=== PATIENT | female | born 1950 | race Caucasian/White ===

== ENCOUNTER 2019-12-21 21:01 | Emergency (ER) | payer MEDICARE, OTHER, SELFPAY ==
[2019-12-21] VITALS (9 sets, daily range): BP systolic 123–171; BP diastolic 60–87; PULSE 72–92; RESP 18–26; TEMP 36.3–36.7; O2SAT 91–98
--- NOTE | ~2019-12-21 | XR_ITS ---
XR shoulder LT min 2V DATE: 12/21/2019 22:59 INDICATION: Fall. Generalized left shoulder pain TECHNIQUE: 4 views COMPARISON: 12/22/2019 left shoulder FINDINGS: There is reduction of the anterior dislocation of the left shoulder. No apparent fracture is noted. Normal alignment at the acromioclavicular and glenohumeral joints. Diffuse osteopenia. IMPRESSION: Reduction of anterior dislocation of left shoulder Reviewed, dictated and finalized at location A.
--- NOTE | ~2019-12-21 | XR_ITS ---
EXAMINATION: XR shoulder LT min 2V DATE: 12/21/2019 21:35 INDICATION: Left shoulder pain. TECHNIQUE: 4 views of left shoulder were obtained. COMPARISON: None. FINDINGS: There is anterior dislocation of humeral head with respect to glenoid. There is an impactio n fracture deformity of posterolateral aspect of humeral head (Hill-Sachs fracture deformity). Acromi oclavicular joint is normal. Sternotomy wires are noted. IMPRESSION: 1. Anterior left shoulder dislocation. 2. Hill-Sachs fracture deformity. Reviewed, dictated and finalized at location A.
--- NOTE | ~2019-12-21 | XR_ITS ---
XR chest 1V portable DATE: 12/21/2019 22:59 INDICATION: Possible aspiration. Hypertension. TECHNIQUE: Portable AP chest on 12/21/2019 at 2246 hours COMPARISON: None FINDINGS: This is a limited apical lordotic portable single view of the chest. Status post sternotomy. Cardiomegaly. There is pulmonary vascular redistribution which may indicate mild pulmonary venous hypertension. The re are mild bibasilar infiltrates and/atelectasis. Diffuse osteopenia. There is thoracolumbar scoliosis. IMPRESSION: Cardiomegaly and mild pulmonary vascular congestion Bibasilar infiltrate and/or atelectasis Reviewed, dictated and finalized at location A.
--- NOTE | 2019-12-21 21:17 | ED.UPPEXIN ---
HPI - Extremity Injury (Upper) General Chief Complaint: Extremity Injury, Upper Stated Complaint: hand injury Source: patient and EMS Mode of arrival: ambulatory History of Present Illness HPI narrative: Patient is 69 years old white female came from home by ambulance complaining of left shoulder pain after tripping and falling. Patient denies other injuries. Patient denies any fever, chills, nausea, no vomiting, coughing, shortness of breath, chest pain or back pain. Related Data Home Medications Medication Instructions Recorded Confirmed estradiol [Estrace] 1 g VAGINAL 3XW 12/21/19 ferrous sulfate 325 mg PO DAILY 12/21/19 fluticasone furoate [Flonase INTRANASAL 12/21/19 Sensimist] insulin glargine [Lantus U-100 SUBCUT 12/21/19 Insulin] lisinopril 10 mg PO DAILY 12/21/19 magnesium oxide 400 mg PO BID 12/21/19 metformin 500 mg PO DAILY 12/21/19 idxhxlsv-raj-wrrw-FA-lutein 1 tablet PO DAILY 12/21/19 [Centrum Silver Women] mycophenolate sodium [Myfortic] 720 mg PO BID 12/21/19 duyzp-6y-uvd-epa-fish oil [[place]-3 2 cap PO DAILY 12/21/19 Fish Oil] omeprazole magnesium [Prilosec] 20 mg PO DAILY 12/21/19 prednisone 5 mg PO DAILY 12/21/19 rosuvastatin [Crestor] 5 mg PO DAILY 12/21/19 tacrolimus [Prograf] 1.5 mg PO Q12H 12/21/19 vit C,I-Qh-whrbk-lutein-zeaxan 1 tablet PO DAILY 12/21/19 [PreserVision AREDS-2] Allergies Allergy/AdvReac Type Severity Reaction Status Date / Time Neponset And Derivatives Allergy Rash Verified 12/21/19 21:23 gatifloxacin [From Tequin] Allergy Other Verified 12/21/19 21:23 iohexol Allergy Hives Verified 12/21/19 21:23 [From contrast - CT, X-RAY] Penicillins Allergy Rash Verified 12/21/19 21:23 Sulfa (Sulfonamide Allergy Fever Verified 12/21/19 21:23 Antibiotics) Review of Systems Review of Systems: Narrative: CONSTITUTIONAL: Denies fever, chills, or sweats. EYES: Denies visual changes, redness, or discharge. ENT: Denies rhinorrhea, congestion, sore throat, or otalgia. CARDIOVASCULAR: Denies chest pain, palpitations, or edema. RESPIRATORY: Denies cough or dyspnea. GASTROINTESTINAL: Denies abdominal pain, nausea, vomiting, or diarrhea. GENITOURINARY: Denies dysuria or hematuria. SKIN: Denies rash or itching. MUSCULOSKELETAL: Denies back pain, joint pain, or myalgia. NEUROLOGIC: Denies headache, numbness, or weakness. PSYCHIATRIC: Denies anxiety or depression. [facility], [facility] Past Medical History Medical History (Updated 12/21/19 @ 22:54 by Eloisa Zepeda MD) Diabetes mellitus, new onset Hypertension Kidney transplant as cause of abnormal reaction or later complication Social History Social History (Updated 12/21/19 @ 21:22 by Eloisa Zepeda MD) Social History: Patient denied any smoking or drinking or marijuana use. Second hand tobacco smoke exposure: No Additional smoking assessment comments: Denies any smoking Alcohol use details: Denies alcohol use Exam Narrative: Exam Narrative: General appearance: Well-developed, well-nourished Skin: Normal color Head: Normocephalic, nontraumatic Eyes: Clear conjunctiva ENT: Oropharynx normal, ears normal, nose normal Neck: Supple, nontender Chest and respiratory: Airway patent, no respiratory distress, no accessory muscle use Heart: Regular rate/rhythm Abdomen: Soft, nontender, no organomegaly, quiet bowel sounds Vascular: Normal peripheral pulses, normal capillary refill. Musculoskeletal: Left shoulder shows deformity, diffuse tenderness and severe limited range of motion Neurologic: Alert and oriented ?3, MOLD DUMPER is normal as tested, no gross motor deficit Course Course Emergency Course: Stable, improving Vital Signs Vi
--- NOTE | 2019-12-21 21:20 | PC.NURSE ---
Patient being taken to xray.
[2019-12-21] MEDS: HYDROmorphone HCL INJ (*CRX) 1 MG/ML SYR IM (21:32)
[2019-12-21] MEDS: Please add drug allergy info to patient profile. 1 EACH XX (21:32)
[2019-12-21] MEDS: ONDANSETRON HCL ODT 4 MG TABLET PO (21:32)
[2019-12-21] MEDS: SODIUM CHLORIDE 0.9% IV 1,000 ML 500 ML (22:25)
--- NOTE | 2019-12-21 22:25 | PC.NURSE ---
ERP in room to prepare for reduction.
[2019-12-21] MEDS: ETOMIDATE 20 MG/10 ML AMPUL 40 MG IV PUSH (22:26)
--- NOTE | 2019-12-21 22:28 | PC.NURSE ---
2226 10 mg etomdate given IVP. ERP performed reduction.
--- NOTE | 2019-12-21 22:36 | PC.NURSE ---
Patient vomited after sedation, chest xray ordered.
[2019-12-22 00:40] VITALS: BP 119/69; PULSE 75; RESP 20; O2SAT 93
== END 2019-12-22 00:43 | disposition home or self-care (01) ==
PROVIDERS: Emergency Provider Emergency Medicine
DX: S43.015A Anterior dislocation of left humerus, initial encounter (principal); Z79.4 Long term (current) use of insulin; Z79.84 Long term (current) use of oral hypoglycemic drugs; E11.9 Type 2 diabetes mellitus without complications; I10 Essential (primary) hypertension; Z94.0 Kidney transplant status; W01.0XXA Fall on same level from slipping, tripping and stumbling without subsequent striking against object, initial encounter
CPT/HCPCS: 23650; 71045; 73030; 96372; 99285; A9270; J1170; J7030

== ENCOUNTER 2021-07-14 08:06 | Outpatient (CLI) | payer MEDICARE, SELFPAY ==
[2021-07-14 09:04] LABS: Hematocrit 38.9 % (37.0-47.0); Hemoglobin 12.3 g/dL (12.0-15.0); Mean Corpuscular HGB Conc 31.6 g/dl (32-36); Mean Corpuscular Hemoglobin 26.8 pg (26-34); Mean Corpuscular Volume 84.7 fl (80-100); Mean Platelet Volume 10.7 fl (7.4-10.4); Platelet Count Result 177 k/mm3 (150-375); Red Blood Count 4.59 M/mm3 (4.2-5.4); Red Cell Distribution Width 15.6 % (11.5-14.5)
[2021-07-14 09:15] LABS: Albumin Level 3.7 g/dL (3.5-5.1); Anion Gap 7 mmol/L (8-16); Blood Urea Nitrogen 17 mg/dL (7-17); Calcium 8.4 mg/dL (8.4-10.2); Carbon Dioxide 27 mmol/L (22-30); Chloride 105 mmol/L (98-107); Estimated Glomerular Filt Rate > 60; Glucose 104 mg/dL (65-110); Magnesium 1.7 mg/dL (1.6-2.3); Sodium 139 mmol/L (137-145)
[2021-07-14 10:15] LABS: Hemoglobin A1C 6.5 % (<5.7)
[2021-07-14 10:25] LABS: Creatinine Urine 154.7 mg/dL; Total Protein Urine Random 13 mg/dL; Ur Ttl Prot Creatinine Ratio 0.08 mg/mg (0-0.20)
[2021-07-17 17:16] LABS: Tacrolimus Prograf 4.3 mcg/L
== END 2021-07-14 08:07 | disposition home or self-care (01) ==
DX: D64.9 Anemia, unspecified (principal); N25.81 Secondary hyperparathyroidism of renal origin; E11.9 Type 2 diabetes mellitus without complications; E78.41 Elevated Lipoprotein(a); E83.49 Other disorders of magnesium metabolism; Z79.899 Other long term (current) drug therapy; Z94.0 Kidney transplant status
CPT/HCPCS: 36415; 80069; 80197; 82570; 83036; 83735; 84156; 85027

== ENCOUNTER 2021-10-13 08:03 | Outpatient (RCR) | payer MEDICARE, SELFPAY ==
[2021-08-11 08:36] LABS: Basophils Percent Auto 0.4 % (0.2-1.2); Eosinophils Absolute Auto 0.1 K/mm3 (0-0.3); Eosinophils Percent Auto 1.8 % (0-4.4); Hemoglobin 12.2 g/dL (12.0-15.0); Immature Granulocyte Absolute 0.03 K/mm3 (0.00-0.031); Immature Granulocyte Percent A 0.5 % (0-0.5); Lymphocytes Absolute Auto 1.79 K/mm3 (0.9-3.2); Mean Corpuscular HGB Conc 29.8 g/dl (32-36); Mean Corpuscular Hemoglobin 26.2 pg (26-34); Mean Platelet Volume 9.5 fl (7.4-10.4); Monocytes Absolute Auto 0.6 K/mm3 (0.1-0.6); Monocytes Percent Auto 9.8 % (2.6-8.5); Neutrophils Absolute Auto 3.1 K/mm3 (1.3-6.7); Neutrophils Percent Auto 55.5 % (45.5-73.1); Platelet Count Result 165 k/mm3 (150-375); Red Blood Count 4.66 M/mm3 (4.2-5.4); Red Cell Distribution Width 16.1 % (11.5-14.5); White Blood Count 5.6 K/mm3 (4.5-10.0)
[2021-08-11 08:49] LABS: Anion Gap 8 mmol/L (8-16); Blood Urea Nitrogen 15 mg/dL (7-17); Calcium 7.9 mg/dL (8.4-10.2); Carbon Dioxide 23 mmol/L (22-30); Chloride 109 mmol/L (98-107); Estimated Glomerular Filt Rate > 60; Glucose 128 mg/dL (65-110); Potassium 3.7 mmol/L (3.4-5.0); Sodium 140 mmol/L (137-145)
[2021-08-11 09:01] LABS: Platelet Estimate Adequate (Adequate)
[2021-08-11 09:02] LABS: Ovalocytes 1+ (NORMAL)
[2021-09-08 08:46] LABS: Hematocrit 41.7 % (37.0-47.0); Hemoglobin 12.4 g/dL (12.0-15.0); Mean Corpuscular HGB Conc 29.7 g/dl (32-36); Mean Corpuscular Hemoglobin 26.3 pg (26-34); Mean Corpuscular Volume 88.3 fl (80-100); Mean Platelet Volume 10.4 fl (7.4-10.4); Platelet Count Result 174 k/mm3 (150-375); Red Blood Count 4.72 M/mm3 (4.2-5.4); Red Cell Distribution Width 16.6 % (11.5-14.5); White Blood Count 5.9 K/mm3 (4.5-10.0)
[2021-09-08 09:03] LABS: Anion Gap 6 mmol/L (8-16); Blood Urea Nitrogen 17 mg/dL (7-17); Calcium 8.4 mg/dL (8.4-10.2); Carbon Dioxide 25 mmol/L (22-30); Chloride 108 mmol/L (98-107); Cholesterol 145 mg/dL (0-200); Creatine Kinase 35 U/L (30-135); Estimated Glomerular Filt Rate > 60; Glucose 95 mg/dL (65-110); HDL Direct 46 mg/dL; Magnesium 1.7 mg/dL (1.6-2.3); Potassium 4.2 mmol/L (3.4-5.0); Sodium 139 mmol/L (137-145); Triglycerides 143 mg/dL (<150)
[2021-09-08 09:10] LABS: LDL Cholesterol Direct 62 mg/dL
[2021-09-08 09:23] LABS: Iron 54 ug/dL (37-170)
[2021-09-08 09:34] LABS: Percent Iron Saturation 18 % (20-50)
[2021-10-13 08:44] LABS: Hematocrit 38.5 % (37.0-47.0); Hemoglobin 12.1 g/dL (12.0-15.0); Mean Corpuscular HGB Conc 31.4 g/dl (32-36); Mean Corpuscular Hemoglobin 26.4 pg (26-34); Mean Corpuscular Volume 84.1 fl (80-100); Mean Platelet Volume 10.1 fl (7.4-10.4); Platelet Count Result 183 k/mm3 (150-375); Red Blood Count 4.58 M/mm3 (4.2-5.4); Red Cell Distribution Width 16.3 % (11.5-14.5); White Blood Count 6.5 K/mm3 (4.5-10.0)
[2021-10-13 08:56] LABS: Albumin Level 3.7 g/dL (3.5-5.1); Anion Gap 6 mmol/L (8-16); Blood Urea Nitrogen 21 mg/dL (7-17); Calcium 8.5 mg/dL (8.4-10.2); Carbon Dioxide 25 mmol/L (22-30); Chloride 108 mmol/L (98-107); Cholesterol 165 mg/dL (0-200); Creatine Kinase 44 U/L (30-135); Estimated Glomerular Filt Rate > 60; Glucose 106 mg/dL (65-110); HDL Direct 48 mg/dL; Magnesium 1.9 mg/dL (1.6-2.3); Phosphorus 4.3 mg/dL (2.5-4.5); Potassium 4.1 mmol/L (3.4-5.0); Sodium 139 mmol/L (137-145); Triglycerides 116 mg/dL (<150)
[2021-10-13 09:07] LABS: LDL Cholesterol Direct 71 mg/dL
[2021-10-13 10:26] LABS: Parathyroid Intact 59.1 pg/mL (7.5-53.5)
[2021-10-13 13:22] LABS: Iron 64 ug/dL (37-170)
[2021-10-13 13:33] LABS: Percent Iron Saturation 22 % (20-50)
== END 2021-11-09 23:59 | disposition home or self-care (01) ==
LOC: ANHLAB 08:03
DX: Z94.0 Kidney transplant status (principal); E11.9 Type 2 diabetes mellitus without complications; N25.81 Secondary hyperparathyroidism of renal origin; D64.9 Anemia, unspecified
CPT/HCPCS: 36415; 80048; 80061; 80069; 80197; 82550; 82728; 83540; 83550; 83735; 83970; 85025; 85027

== ENCOUNTER 2021-11-10 08:06 | Outpatient (CLI) | payer MEDICARE, SELFPAY ==
[2021-11-10 09:46] LABS: Hemoglobin 11.7 g/dL (12.0-15.0); Mean Corpuscular Hemoglobin 26.1 pg (26-34); Mean Corpuscular Volume 87.1 fl (80-100); Mean Platelet Volume 10.4 fl (7.4-10.4); Platelet Count Result 199 k/mm3 (150-375); Red Blood Count 4.48 M/mm3 (4.2-5.4); Red Cell Distribution Width 15.9 % (11.5-14.5); White Blood Count 6.3 K/mm3 (4.5-10.0)
[2021-11-10 10:03] LABS: Alanine Aminotransferase 12 U/L (6-35); Albumin Level 3.7 g/dL (3.5-5.1); Alkaline Phosphatase 131 U/L (38-126); Anion Gap 9 mmol/L (8-16); Aspartate Amino Transferase 22 U/L (14-36); Bilirubin,Total 0.4 mg/dL (0.2-1.3); Blood Urea Nitrogen 28 mg/dL (7-17); Calcium 9.4 mg/dL (8.4-10.2); Carbon Dioxide 24 mmol/L (22-30); Chloride 106 mmol/L (98-107); Cholesterol 140 mg/dL (0-200); Estimated Glomerular Filt Rate > 60; Glucose 114 mg/dL (65-110); HDL Direct 44 mg/dL; Potassium 4.2 mmol/L (3.4-5.0); Sodium 139 mmol/L (137-145); Triglycerides 158 mg/dL (<150)
[2021-11-10 10:14] LABS: LDL Cholesterol Direct 60 mg/dL
[2021-11-10 10:34] LABS: Creatinine Urine 184.9 mg/dL
[2021-11-10 10:37] LABS: MALB Creatinine Ratio 18.7 mg/g (0-30); Microalbumin Urine Random 34.5 mg/L (0-16.7)
== END 2021-11-10 08:07 | disposition home or self-care (01) ==
DX: E11.9 Type 2 diabetes mellitus without complications (principal); Z94.0 Kidney transplant status; I10 Essential (primary) hypertension; E55.9 Vitamin D deficiency, unspecified
CPT/HCPCS: 36415; 80053; 80061; 80197; 82043; 82306; 83036; 84443; 85027

== ENCOUNTER 2022-01-13 08:24 | Outpatient (RCR) | payer MEDICARE, SELFPAY ==
[2021-11-12 23:30] LABS: Tacrolimus Prograf 6.2 mcg/L
[2021-12-15 08:35] LABS: Hematocrit 40.5 % (37.0-47.0); Hemoglobin 12.3 g/dL (12.0-15.0); Mean Corpuscular HGB Conc 30.4 g/dl (32-36); Mean Corpuscular Hemoglobin 26.5 pg (26-34); Mean Corpuscular Volume 87.1 fl (80-100); Mean Platelet Volume 9.9 fl (7.4-10.4); Platelet Count Result 173 k/mm3 (150-375); Red Blood Count 4.65 M/mm3 (4.2-5.4); Red Cell Distribution Width 15.9 % (11.5-14.5); White Blood Count 6.3 K/mm3 (4.5-10.0)
[2021-12-15 08:58] LABS: Anion Gap 10 mmol/L (8-16); Blood Urea Nitrogen 19 mg/dL (7-17); Calcium 8.6 mg/dL (8.4-10.2); Carbon Dioxide 25 mmol/L (22-30); Chloride 106 mmol/L (98-107); Estimated Glomerular Filt Rate > 60; Glucose 98 mg/dL (65-110); Potassium 3.9 mmol/L (3.4-5.0); Sodium 141 mmol/L (137-145)
[2021-12-17 22:54] LABS: Tacrolimus Prograf 5.4 mcg/L
[2022-01-13 08:58] LABS: Hematocrit 39.7 % (37.0-47.0); Hemoglobin 12.1 g/dL (12.0-15.0); Mean Corpuscular HGB Conc 30.5 g/dl (32-36); Mean Corpuscular Hemoglobin 26.5 pg (26-34); Mean Corpuscular Volume 87.1 fl (80-100); Mean Platelet Volume 10.2 fl (7.4-10.4); Platelet Count Result 185 k/mm3 (150-375); Red Blood Count 4.56 M/mm3 (4.2-5.4); Red Cell Distribution Width 15.6 % (11.5-14.5); White Blood Count 6.3 K/mm3 (4.5-10.0)
[2022-01-13 09:09] LABS: Albumin Level 3.8 g/dL (3.5-5.1); Anion Gap 12 mmol/L (8-16); Blood Urea Nitrogen 19 mg/dL (7-17); Calcium 9.1 mg/dL (8.4-10.2); Carbon Dioxide 24 mmol/L (22-30); Chloride 104 mmol/L (98-107); Estimated Glomerular Filt Rate > 60; Glucose 115 mg/dL (65-110); Magnesium 1.6 mg/dL (1.6-2.3); Phosphorus 4.1 mg/dL (2.5-4.5); Sodium 140 mmol/L (137-145)
[2022-01-13 09:25] LABS: Hemoglobin A1C 7.5 % (<5.7)
[2022-01-13 10:42] LABS: Add Urine Microscopic? YES; Appearance Urine Cloudy (Clear); Bilirubin Urine Negative (Negative); Blood Urine Negative (Negative); Color Urine Yellow (Yellow); Glucose Urine UA Negative (Negative); Ketones Urine Negative (Negative); Leukocyte Esterase Ur Negative LEU/UL (NEGATIVE); Mucus Urine Rare /lpf; Nitrate Urine Negative (Negative); Protein Urine Negative (Negative); Specific Grav Ur 1.018 (1.001-1.035); Squamous Epithelial Cell Urine Rare /hpf (Few); Urobilinogen Urine Negative mg/dL (<2.0)
[2022-01-13 10:44] LABS: Creatinine Urine 114.6 mg/dL; Total Protein Urine Random 9 mg/dL; Ur Ttl Prot Creatinine Ratio 0.08 mg/mg (0-0.20)
[2022-01-16 14:21] LABS: Tacrolimus Prograf 6.3 mcg/L
== END 2022-02-08 23:59 | disposition home or self-care (01) ==
LOC: ANHLAB 08:24
DX: E11.9 Type 2 diabetes mellitus without complications (principal); E78.49 Other hyperlipidemia; D64.9 Anemia, unspecified; N25.81 Secondary hyperparathyroidism of renal origin; Z94.0 Kidney transplant status; Z79.899 Other long term (current) drug therapy
CPT/HCPCS: 36415; 80048; 80069; 80197; 81001; 82570; 83036; 83735; 84156; 85027

== ENCOUNTER 2022-05-10 08:18 | Outpatient (RCR) | payer MEDICARE, SELFPAY ==
[2022-02-16 08:32] LABS: Hematocrit 39.4 % (35.0-42.0); Hemoglobin 12.2 g/dL (11.7-13.8); Mean Corpuscular Hemoglobin 26.5 pg (27.0-31.0); Mean Corpuscular Volume 85.5 fL (78.0-102.0); Platelet Count Result 183 K/mm3 (150-420); Red Blood Count 4.61 M/mm3 (4.20-5.40); Red Cell Distribution Width 16.1 % (11.6-14.4); White Blood Count 5.9 K/mm3 (4.8-10.8)
[2022-02-16 09:11] LABS: Anion Gap 10 mmol/L (8-16); Blood Urea Nitrogen 13 mg/dL (7-18); Calcium 8.2 mg/dL (8.5-10.1); Carbon Dioxide 27 mmol/L (21-32); Chloride 108 mmol/L (98-108); Estimated Glomerular Filt Rate > 60; Glucose 103 mg/dL (70-99); Osmolality Calculated 300 mOsm/kg (285-295); Potassium 4.2 mmol/L (3.5-5.1); Sodium 145 mmol/L (136-145)
[2022-03-09 09:27] LABS: Basophils Absolute Auto 0.02 K/mm3 (0.00-0.10); Basophils Percent Auto 0.3 % (0.0-1.0); Eosinophils Percent Auto 1.7 % (1.0-6.0); Hematocrit 38.7 % (35.0-42.0); Hemoglobin 11.8 g/dL (11.7-13.8); Immature Granulocyte Absolute 0.03 K/mm3 (0.00-0.00); Immature Granulocyte Percent A 0.5 % (0.0-0.0); Lymphocytes Absolute Auto 1.79 K/mm3 (1.10-4.50); Lymphocytes Percent Auto 30.9 % (18.0-42.0); Mean Corpuscular HGB Conc 30.5 g/dL (32.0-36.0); Mean Corpuscular Hemoglobin 26.2 pg (27.0-31.0); Mean Corpuscular Volume 85.8 fL (78.0-102.0); Monocytes Percent Auto 10.4 % (2.0-11.0); Neutrophils Absolute Auto 3.3 K/mm3 (1.7-7.2); Neutrophils Percent Auto 56.2 % (50.0-70.0); Platelet Count Result 161 K/mm3 (150-420); Red Blood Count 4.51 M/mm3 (4.20-5.40); Red Cell Distribution Width 16.2 % (11.6-14.4); White Blood Count 5.8 K/mm3 (4.8-10.8)
[2022-03-09 09:51] LABS: Alanine Aminotransferase 16 U/L (14-59); Albumin Level 3.2 g/dL (3.4-5.0); Alkaline Phosphatase 90 U/L (46-116); Anion Gap 12 mmol/L (8-16); Aspartate Amino Transferase 17 U/L (15-37); Bilirubin,Total 0.6 mg/dL (0.00-1.00); Blood Urea Nitrogen 15 mg/dL (7-18); Calcium 8.2 mg/dL (8.5-10.1); Carbon Dioxide 24 mmol/L (21-32); Chloride 108 mmol/L (98-108); Estimated Glomerular Filt Rate > 60; Glucose 113 mg/dL (70-99); Osmolality Calculated 299 mOsm/kg (285-295); Potassium 4.6 mmol/L (3.5-5.1); Sodium 144 mmol/L (136-145); Total Protein 6.3 g/dL (6.4-8.2)
[2022-03-12 13:24] LABS: Tacrolimus Prograf 4.8 mcg/L
[2022-04-12 08:42] LABS: Hematocrit 41.1 % (35.0-42.0); Hemoglobin 11.9 g/dL (11.7-13.8); Mean Corpuscular Hemoglobin 26.2 pg (27.0-31.0); Mean Corpuscular Volume 90.5 fL (78.0-102.0); Mean Platelet Volume 9.9 fl (9.2-11.8); Platelet Count Result 182 K/mm3 (150-420); Red Blood Count 4.54 M/mm3 (4.20-5.40); Red Cell Distribution Width 15.7 % (11.6-14.4); White Blood Count 5.8 K/mm3 (4.8-10.8)
[2022-04-12 09:26] LABS: Anion Gap 7 mmol/L (8-16); Blood Urea Nitrogen 17 mg/dL (7-18); Calcium 8.4 mg/dL (8.5-10.1); Carbon Dioxide 29 mmol/L (21-32); Chloride 104 mmol/L (98-108); Estimated Glomerular Filt Rate > 60; Glucose 104 mg/dL (70-99); Magnesium 1.5 mg/dL (1.8-2.4); Osmolality Calculated 291 mOsm/kg (285-295); Phosphorus 4.1 mg/dL (2.6-4.7); Potassium 4.1 mmol/L (3.5-5.1); Sodium 140 mmol/L (136-145)
[2022-04-15 00:36] LABS: Tacrolimus Prograf 4.3 mcg/L
[2022-05-10 08:31] LABS: Basophils Absolute Auto 0.03 K/mm3 (0.00-0.10); Basophils Percent Auto 0.5 % (0.0-1.0); Eosinophils Percent Auto 1.6 % (1.0-6.0); Hematocrit 39.3 % (35.0-42.0); Hemoglobin 12.2 g/dL (11.7-13.8); Immature Granulocyte Absolute 0.02 K/mm3 (0.00-0.00); Immature Granulocyte Percent A 0.3 % (0.0-0.0); Lymphocytes Absolute Auto 2.51 K/mm3 (1.10-4.50); Lymphocytes Percent Auto 40.9 % (18.0-42.0); Mean Corpuscular Hemoglobin 26.3 pg (27.0-31.0); Mean Corpuscular Volume 84.7 fL (78.0-102.0); Mean Platelet Volume 8.6 fl (9.2-11.8); Monocytes Absolute Auto 0.55 K/mm3 (0.10-0.90); Neutrophils Absolute Auto 2.9 K/mm3 (1.7-7.2); Neutrophils Percent Auto 47.7 % (50.0-70.0); Platelet Count Result 191 K/mm3 (150-420); Red Blood Count 4.64 M/mm3 (4.20-5.40); Red Cell Distribution Width 15.7 % (11.6-14.4); White Blood Count 6.1 K/mm3 (4.8-10.8)
[2022-05-10 09:02] LABS: Albumin Level 3.2 g/dL (3.4-5.0); Anion Gap 5 mmol/L (8-16); Blood Urea Nitrogen 15 mg/dL (7-18); Calcium 8.6 mg/dL (8.5-10.1); Carbon Dioxide 31 mmol/L (21-32); Chloride 106 mmol/L (98-108); Estimated Glomerular Filt Rate > 60; Glucose 108 mg/dL (70-99); Osmolality Calculated 295 mOsm/kg (285-295); Phosphorus 4.7 mg/dL (2.6-4.7); Potassium 4.1 mmol/L (3.5-5.1); Sodium 142 mmol/L (136-145)
[2022-05-13 11:00] LABS: Tacrolimus Prograf 4.5 mcg/L
== END 2022-05-17 23:59 | disposition home or self-care (01) ==
LOC: CHSLAB 08:18
DX: E83.49 Other disorders of magnesium metabolism (principal); E03.9 Hypothyroidism, unspecified; D64.9 Anemia, unspecified; N25.81 Secondary hyperparathyroidism of renal origin; Z94.0 Kidney transplant status; Z79.899 Other long term (current) drug therapy
CPT/HCPCS: 36415; 80048; 80053; 80069; 80197; 83735; 85025; 85027

== ENCOUNTER 2022-06-08 08:21 | Outpatient (CLI) | payer MEDICARE, SELFPAY ==
[2022-06-08 09:00] LABS: Hematocrit 36.5 % (35.0-42.0); Hemoglobin 11.3 g/dL (11.7-13.8); Mean Corpuscular Hemoglobin 25.9 pg (27.0-31.0); Mean Corpuscular Volume 83.5 fL (78.0-102.0); Mean Platelet Volume 9.6 fl (9.2-11.8); Platelet Count Result 228 K/mm3 (150-420); Red Blood Count 4.37 M/mm3 (4.20-5.40); Red Cell Distribution Width 15.5 % (11.6-14.4); White Blood Count 6.2 K/mm3 (4.8-10.8)
[2022-06-08 09:21] LABS: Hemoglobin A1C 7.2 % (<5.7)
[2022-06-08 09:30] LABS: Albumin Level 3.1 g/dL (3.4-5.0); Anion Gap 6 mmol/L (8-16); Blood Urea Nitrogen 15 mg/dL (7-18); Calcium 8.9 mg/dL (8.5-10.1); Carbon Dioxide 30 mmol/L (21-32); Chloride 106 mmol/L (98-108); Estimated Glomerular Filt Rate > 60; Glucose 91 mg/dL (70-99); Osmolality Calculated 294 mOsm/kg (285-295); Phosphorus 4.7 mg/dL (2.6-4.7); Potassium 4.4 mmol/L (3.5-5.1); Sodium 142 mmol/L (136-145)
== END 2022-06-08 08:22 | disposition home or self-care (01) ==
LOC: CHSLAB 08:33
DX: E11.9 Type 2 diabetes mellitus without complications (principal); E78.00 Pure hypercholesterolemia, unspecified
CPT/HCPCS: 36415; 80069; 80197; 83036; 85027

== ENCOUNTER 2022-06-17 12:27 | Outpatient (CLI) | payer MEDICARE, SELFPAY ==
--- NOTE | 2022-06-17 13:24 | ECHO_ITS ---
Patient Info Name: Taylor Rodrigues Age: 72 years : 1950 Gender: Female Ht: 65 in Wt: 165 lbs BSA: 1.87 m2 HR: 77 bpm BP: 127 / 74 mmHg Technical Quality: Good Exam Date: 06/17/2022 12:20 PM Exam Location: [facility] Patient Status: Outpatient Admit Date: 06/17/2022 Staff Ordering Physician: Crispin Marcial Sheet Rock Nailer: Jovan Baig RDCS, RT Attending Provider: Crispin Marcial Exam Type: CA echo doppler color flow Study Info Indications I34.0 - Nonrheumatic mitral (valve) insufficiency Complete two-dimensional, color flow and Doppler transthoracic echocardiogram is performed. Strain analysis performed. Summary 1. Complete two-dimensional, color flow and Doppler transthoracic echocardiogram is performed. 2. Left ventricular chamber dimension is normal. 3. Left ventricular systolic function is normal, estimated at 60-65%. 4. There is moderate concentric increased left ventricular wall thickness. 5. The left ventricular diastolic function is abnormal. 6. E/e' 10 is mildly elevated. 7. Global longitudinal strain is normal at -18.%%. 8. Left atrial chamber dimension is mildly enlarged. 9. Right atrial chamber dimension is mildly enlarged. 10. There is mild aortic valve sclerosis. 11. The mitral valve has mildly calcified annulus. 12. There is mild mitral valve regurgitation. 13. There is mild tricuspid valve regurgitation. 14. Severe pulmonary hypertension, estimated pulmonary arterial systolic pressure is 76 mmHg. 15. There is mild pulmonic regurgitation. Left Ventricle E/e' 10 is mildly elevated. Global longitudinal strain is normal at -18.%%. Left ventricular chamber dimension is normal. Left ventricular systolic function is normal, estimated at 60-65%. There is moderate concentric increased left ventricular wall thickness. The left ventricular diastolic function is abnormal. Right Ventricle Right ventricular chamber dimension is normal. Right ventricular systolic function is normal. Left Atria Left atrial chamber dimension is mildly enlarged. Right Atria Right atrial chamber dimension is mildly enlarged. Aortic Valve The aortic valve is trileaflet. There is mild aortic valve sclerosis. There is no aortic valve stenosis. There is no aortic valve regurgitation. Pulmonic Valve There is mild pulmonic regurgitation. Mitral Valve The mitral valve has mildly calcified annulus. There is no mitral valve stenosis. There is mild mitral valve regurgitation. Tricuspid Valve There is mild tricuspid valve regurgitation. Severe pulmonary hypertension, estimated pulmonary arterial systolic pressure is 76 mmHg. Pericardium/Pleural There is no pericardial effusion. Inferior Vena Cava Normal inferior vena cava with >50% collapse upon inspiration consistent with normal right atrial pressure, 5 mmHg. Aorta The aortic root size at the sinus of Valsalva is normal. Left Ventricular Outflow Tract Name Value Normal LVOT 2D LVOT Diameter 2.0 cm LVOT Doppler LVOT Peak Velocity 141 cm/s LVOT Peak Gradient 7 mmHg LVOT Mean Gra
== END 2022-06-17 12:28 | disposition home or self-care (01) ==
LOC: CHSIMG 12:29
DX: I34.0 Nonrheumatic mitral (valve) insufficiency (principal); I51.7 Cardiomegaly; I27.20 Pulmonary hypertension, unspecified
CPT/HCPCS: 93306

== ENCOUNTER 2022-09-15 08:14 | Outpatient (RCR) | payer MEDICARE, SELFPAY ==
[2022-07-13 08:49] LABS: Hematocrit 40.3 % (35.0-42.0); Hemoglobin 12.5 g/dL (11.7-13.8); Mean Corpuscular Hemoglobin 26.7 pg (27.0-31.0); Mean Corpuscular Volume 85.9 fL (78.0-102.0); Mean Platelet Volume 10.8 fl (9.2-11.8); Platelet Count Result 214 K/mm3 (150-420); Red Blood Count 4.69 M/mm3 (4.20-5.40); Red Cell Distribution Width 16.4 % (11.6-14.4); White Blood Count 5.7 K/mm3 (4.8-10.8)
[2022-07-13 09:00] LABS: Creatinine Urine 186.26 mg/dL (40-278); Total Protein Urine Random 28.4 mg/dL (0.0-11.9); Ur Ttl Prot Creatinine Ratio 0.15 mg/mg (0-0.20)
[2022-07-13 09:15] LABS: Albumin Level 3.3 g/dL (3.4-5.0); Anion Gap 8 mmol/L (8-16); Blood Urea Nitrogen 16 mg/dL (7-18); Calcium 8.6 mg/dL (8.5-10.1); Carbon Dioxide 29 mmol/L (21-32); Chloride 106 mmol/L (98-108); Estimated Glomerular Filt Rate > 60; Glucose 85 mg/dL (70-99); Magnesium 1.8 mg/dL (1.8-2.4); Osmolality Calculated 296 mOsm/kg (285-295); Potassium 4.1 mmol/L (3.5-5.1); Sodium 143 mmol/L (136-145)
[2022-07-16 09:47] LABS: Tacrolimus Prograf 7.2 mcg/L
[2022-08-10 08:32] LABS: Hematocrit 39.5 % (35.0-42.0); Hemoglobin 12.3 g/dL (11.7-13.8); Mean Corpuscular HGB Conc 31.1 g/dL (32.0-36.0); Mean Corpuscular Hemoglobin 26.2 pg (27.0-31.0); Mean Corpuscular Volume 84.2 fL (78.0-102.0); Mean Platelet Volume 9.7 fl (9.2-11.8); Platelet Count Result 196 K/mm3 (150-420); Red Blood Count 4.69 M/mm3 (4.20-5.40); Red Cell Distribution Width 16.1 % (11.6-14.4)
[2022-08-10 08:51] LABS: Albumin Level 3.2 g/dL (3.4-5.0); Anion Gap 9 mmol/L (8-16); Blood Urea Nitrogen 13 mg/dL (7-18); Calcium 8.7 mg/dL (8.5-10.1); Carbon Dioxide 28 mmol/L (21-32); Chloride 105 mmol/L (98-108); Estimated Glomerular Filt Rate > 60; Glucose 105 mg/dL (70-99); Osmolality Calculated 294 mOsm/kg (285-295); Potassium 4.2 mmol/L (3.5-5.1); Sodium 142 mmol/L (136-145)
[2022-08-13 23:59] LABS: Tacrolimus Prograf 5.3 mcg/L
[2022-09-15 08:30] LABS: Basophils Absolute Auto 0.02 K/mm3 (0.00-0.10); Basophils Percent Auto 0.3 % (0.0-1.0); Eosinophils Absolute Auto 0.12 K/mm3 (0.02-0.50); Eosinophils Percent Auto 2.1 % (1.0-6.0); Hematocrit 37.7 % (35.0-42.0); Hemoglobin 11.3 g/dL (11.7-13.8); Immature Granulocyte Absolute 0.02 K/mm3 (0.00-0.00); Immature Granulocyte Percent A 0.3 % (0.0-0.0); Lymphocytes Absolute Auto 1.98 K/mm3 (1.10-4.50); Lymphocytes Percent Auto 33.9 % (18.0-42.0); Mean Corpuscular Hemoglobin 25.3 pg (27.0-31.0); Mean Corpuscular Volume 84.5 fL (78.0-102.0); Mean Platelet Volume 9.2 fl (9.2-11.8); Monocytes Absolute Auto 0.52 K/mm3 (0.10-0.90); Monocytes Percent Auto 8.9 % (2.0-11.0); Neutrophils Absolute Auto 3.2 K/mm3 (1.7-7.2); Neutrophils Percent Auto 54.5 % (50.0-70.0); Platelet Count Result 183 K/mm3 (150-420); Red Blood Count 4.46 M/mm3 (4.20-5.40); Red Cell Distribution Width 16.2 % (11.6-14.4); White Blood Count 5.8 K/mm3 (4.8-10.8)
[2022-09-15 09:05] LABS: Albumin Level 3.1 g/dL (3.4-5.0); Anion Gap 8 mmol/L (8-16); Blood Urea Nitrogen 15 mg/dL (7-18); Calcium 8.7 mg/dL (8.5-10.1); Carbon Dioxide 29 mmol/L (21-32); Chloride 106 mmol/L (98-108); Estimated Glomerular Filt Rate > 60; Glucose 75 mg/dL (70-99); Osmolality Calculated 295 mOsm/kg (285-295); Phosphorus 4.4 mg/dL (2.6-4.7); Potassium 4.2 mmol/L (3.5-5.1); Sodium 143 mmol/L (136-145)
[2022-09-19 01:17] LABS: Tacrolimus Prograf 3.9 mcg/L
== END 2022-10-11 23:59 | disposition home or self-care (01) ==
LOC: CHSLAB 08:14
DX: Z51.81 Encounter for therapeutic drug level monitoring (principal); E03.9 Hypothyroidism, unspecified; E11.9 Type 2 diabetes mellitus without complications; E83.49 Other disorders of magnesium metabolism; E78.49 Other hyperlipidemia; D64.9 Anemia, unspecified; N25.81 Secondary hyperparathyroidism of renal origin; Z94.0 Kidney transplant status; Z79.899 Other long term (current) drug therapy
CPT/HCPCS: 36415; 80069; 80197; 82570; 83735; 84156; 85025; 85027

== ENCOUNTER 2022-12-15 08:39 | Outpatient (RCR) | payer MEDICARE, SELFPAY ==
[2022-10-12 08:34] LABS: Appearance Urine Clear (Clear); Basophils Absolute Auto 0.05 K/mm3 (0.00-0.10); Basophils Percent Auto 0.8 % (0.0-1.0); Bilirubin Urine Negative (Negative); Blood Urine Negative (Negative); Color Urine Light Yellow (Yellow); Eosinophils Absolute Auto 0.11 K/mm3 (0.02-0.50); Eosinophils Percent Auto 1.9 % (1.0-6.0); Glucose Urine UA Negative (Negative); Hematocrit 42.1 % (35.0-42.0); Hemoglobin 12.1 g/dL (11.7-13.8); Immature Granulocyte Absolute 0.03 K/mm3 (0.00-0.00); Immature Granulocyte Percent A 0.5 % (0.0-0.0); Ketones Urine Negative (Negative); Leukocyte Esterase Ur Trace (Negative); Lymphocytes Absolute Auto 2.07 K/mm3 (1.10-4.50); Lymphocytes Percent Auto 35.1 % (18.0-42.0); Mean Corpuscular HGB Conc 28.7 g/dL (32.0-36.0); Mean Corpuscular Hemoglobin 26.6 pg (27.0-31.0); Mean Corpuscular Volume 92.5 fL (78.0-102.0); Mean Platelet Volume 10.4 fl (9.2-11.8); Monocytes Absolute Auto 0.47 K/mm3 (0.10-0.90); Neutrophils Absolute Auto 3.2 K/mm3 (1.7-7.2); Neutrophils Percent Auto 53.7 % (50.0-70.0); Nitrate Urine Positive (Negative); Platelet Count Result 226 K/mm3 (150-420); Protein Urine Negative (Negative); Red Blood Count 4.55 M/mm3 (4.20-5.40); Red Cell Distribution Width 17.2 % (11.6-14.4); Urobilinogen Urine 0.2 mg/dL (0.2-1.0); White Blood Count 5.9 K/mm3 (4.8-10.8)
[2022-10-12 08:38] LABS: Add Urine Microscopic? NO; Bacteria Urine 3+ /hpf; RBC Urine None seen /hpf (0-2); Squamous Epithelial Cell Urine Few /hpf (Few); WBC Urine 0-3 /hpf (0-3)
[2022-10-12 08:39] LABS: Creatinine Urine 111.82 mg/dL (40-278); Ur Ttl Prot Creatinine Ratio 0.25 mg/mg (0-0.20)
[2022-10-12 08:43] LABS: Hemoglobin A1C 7.5 % (<5.7)
[2022-10-12 09:25] LABS: Albumin Level 3.2 g/dL (3.4-5.0); Anion Gap 9 mmol/L (8-16); Blood Urea Nitrogen 18 mg/dL (7-18); Calcium 8.9 mg/dL (8.5-10.1); Carbon Dioxide 29 mmol/L (21-32); Chloride 105 mmol/L (98-108); Estimated Glomerular Filt Rate > 60; Ferritin 75 ng/mL (8-252); Glucose 97 mg/dL (70-99); Iron 39 ug/dL (50-170); Magnesium 1.6 mg/dL (1.8-2.4); Osmolality Calculated 297 mOsm/kg (285-295); Percent Iron Saturation 13 % (12-57); Potassium 4.2 mmol/L (3.5-5.1); Sodium 143 mmol/L (136-145)
[2022-10-14 23:28] LABS: Tacrolimus Prograf 5.5 mcg/L
[2022-10-15 21:06] LABS: Parathyroid Intact 42 pg/mL (14-64)
[2022-11-16 08:53] LABS: Hematocrit 41.5 % (35.0-42.0); Hemoglobin 12.6 g/dL (11.7-13.8); Mean Corpuscular HGB Conc 30.4 g/dL (32.0-36.0); Mean Corpuscular Hemoglobin 26.4 pg (27.0-31.0); Mean Platelet Volume 11.2 fl (9.2-11.8); Platelet Count Result 197 K/mm3 (150-420); Red Blood Count 4.77 M/mm3 (4.20-5.40); Red Cell Distribution Width 18.2 % (11.6-14.4); White Blood Count 5.6 K/mm3 (4.8-10.8)
[2022-11-16 09:29] LABS: Albumin Level 3.5 g/dL (3.4-5.0); Anion Gap 8 mmol/L (8-16); Blood Urea Nitrogen 17 mg/dL (7-18); Calcium 8.8 mg/dL (8.5-10.1); Carbon Dioxide 29 mmol/L (21-32); Chloride 107 mmol/L (98-108); Estimated Glomerular Filt Rate > 60; Glucose 76 mg/dL (70-99); Osmolality Calculated 298 mOsm/kg (285-295); Phosphorus 4.5 mg/dL (2.6-4.7); Potassium 4.2 mmol/L (3.5-5.1); Sodium 144 mmol/L (136-145)
[2022-11-19 03:05] LABS: Tacrolimus Prograf 5.7 mcg/L
[2022-12-15 08:55] LABS: Hematocrit 40.4 % (35.0-42.0); Hemoglobin 12.4 g/dL (11.7-13.8); Mean Corpuscular HGB Conc 30.7 g/dL (32.0-36.0); Mean Corpuscular Hemoglobin 26.6 pg (27.0-31.0); Mean Corpuscular Volume 86.7 fL (78.0-102.0); Mean Platelet Volume 9.1 fl (9.2-11.8); Platelet Count Result 192 K/mm3 (150-420); Red Blood Count 4.66 M/mm3 (4.20-5.40); Red Cell Distribution Width 16.2 % (11.6-14.4); White Blood Count 6.3 K/mm3 (4.8-10.8)
[2022-12-15 09:26] LABS: Anion Gap 9 mmol/L (8-16); Blood Urea Nitrogen 11 mg/dL (7-18); Calcium 8.8 mg/dL (8.5-10.1); Carbon Dioxide 27 mmol/L (21-32); Chloride 106 mmol/L (98-108); Estimated Glomerular Filt Rate > 60; Glucose 98 mg/dL (70-99); Osmolality Calculated 293 mOsm/kg (285-295); Phosphorus 3.9 mg/dL (2.6-4.7); Potassium 4.2 mmol/L (3.5-5.1); Sodium 142 mmol/L (136-145)
[2022-12-19 10:21] LABS: Tacrolimus Prograf 4.7 mcg/L
== END 2023-01-10 23:59 | disposition home or self-care (01) ==
LOC: CHSLAB 08:39
DX: N25.81 Secondary hyperparathyroidism of renal origin (principal); E11.9 Type 2 diabetes mellitus without complications; D64.9 Anemia, unspecified; Z94.0 Kidney transplant status; Z79.899 Other long term (current) drug therapy
CPT/HCPCS: 36415; 80069; 80197; 81003; 82570; 82728; 83036; 83540; 83550; 83735; 83970; 84156; 85025; 85027; 87077; 87086; 87088; 87186

== ENCOUNTER 2022-12-21 09:51 | Outpatient (CLI) | payer MEDICARE, SELFPAY ==
--- NOTE | ~2022-12-21 | MM_ITS ---
EXAMINATION: MM screening christophe BI w jeffery HISTORY: Screening TECHNIQUE: Craniocaudal and mediolateral oblique 3-D tomosynthesis images were obtained and synthetic 2-D images were generated. CAD analysis was submitted and interpreted. COMPARISON: No prior mammogram is available for comparison at this institution. BREAST PARENCHYMAL COMPOSITION: There are scattered areas of fibroglandular density. FINDINGS: There is no evidence of suspicious mass, calcification, or architectural distortion to sugg est malignancy in either breast. There has been no suspicious interval change. IMPRESSION: 1. No mammographic evidence of malignancy. 2. Recommend routine screening mammography in one year. BI-RADS Category 1: Negative Reviewed, dictated and finalized at location A.
== END 2022-12-21 09:52 | disposition home or self-care (01) ==
LOC: CHSIMG 09:52
DX: Z12.31 Encounter for screening mammogram for malignant neoplasm of breast (principal)
CPT/HCPCS: 77063; 77067

== ENCOUNTER 2023-01-11 08:00 | Outpatient (CLI) | payer MEDICARE, SELFPAY ==
[2023-01-11 08:27] LABS: Hematocrit 38.1 % (35.0-42.0); Hemoglobin 12.2 g/dL (11.7-13.8); Mean Corpuscular Hemoglobin 27.2 pg (27.0-31.0); Mean Platelet Volume 10.9 fl (9.2-11.8); Platelet Count Result 180 K/mm3 (150-420); Red Blood Count 4.48 M/mm3 (4.20-5.40); Red Cell Distribution Width 15.4 % (11.6-14.4)
[2023-01-11 08:57] LABS: Creatinine Urine 129.22 mg/dL (40-278); Total Protein Urine Random 34.1 mg/dL (0.0-11.9); Ur Ttl Prot Creatinine Ratio 0.26 mg/mg (0-0.20)
[2023-01-11 09:02] LABS: Hemoglobin A1C 7.2 % (<5.7)
[2023-01-11 09:21] LABS: Albumin Level 3.1 g/dL (3.4-5.0); Anion Gap 12 mmol/L (8-16); Blood Urea Nitrogen 13 mg/dL (7-18); Calcium 9.2 mg/dL (8.5-10.1); Carbon Dioxide 24 mmol/L (21-32); Chloride 102 mmol/L (98-108); Estimated Glomerular Filt Rate > 60; Glucose 155 mg/dL (70-99); Magnesium 1.5 mg/dL (1.8-2.4); Osmolality Calculated 289 mOsm/kg (285-295); Phosphorus 4.2 mg/dL (2.6-4.7); Sodium 138 mmol/L (136-145)
[2023-01-13 15:02] LABS: Tacrolimus Prograf 4.7 mcg/L
== END 2023-01-11 08:01 | disposition home or self-care (01) ==
LOC: CHSLAB 08:09
DX: E11.9 Type 2 diabetes mellitus without complications (principal); Z79.4 Long term (current) use of insulin
CPT/HCPCS: 36415; 80069; 80197; 82570; 83036; 83735; 84156; 85027

== ENCOUNTER 2023-02-10 08:16 | Outpatient (CLI) | payer MEDICARE, SELFPAY ==
[2023-02-10 08:55] LABS: Basophils Absolute Auto 0.02 K/mm3 (0.00-0.10); Basophils Percent Auto 0.4 % (0.0-1.0); Eosinophils Percent Auto 1.9 % (1.0-6.0); Hematocrit 38.5 % (35.0-42.0); Immature Granulocyte Absolute 0.01 K/mm3 (0.00-0.00); Immature Granulocyte Percent A 0.2 % (0.0-0.0); Lymphocytes Absolute Auto 1.68 K/mm3 (1.10-4.50); Lymphocytes Percent Auto 32.3 % (18.0-42.0); Mean Corpuscular HGB Conc 31.2 g/dL (32.0-36.0); Mean Corpuscular Hemoglobin 27.3 pg (27.0-31.0); Mean Corpuscular Volume 87.5 fL (78.0-102.0); Mean Platelet Volume 11.5 fl (9.2-11.8); Monocytes Absolute Auto 0.53 K/mm3 (0.10-0.90); Monocytes Percent Auto 10.2 % (2.0-11.0); Neutrophils Absolute Auto 2.9 K/mm3 (1.7-7.2); Platelet Count Result 156 K/mm3 (150-420); Red Cell Distribution Width 15.6 % (11.6-14.4); White Blood Count 5.2 K/mm3 (4.8-10.8)
[2023-02-10 08:56] LABS: Appearance Urine Clear (Clear); Bilirubin Urine Negative (Negative); Blood Urine Negative (Negative); Color Urine Yellow (Yellow); Glucose Urine UA Negative (Negative); Ketones Urine Negative (Negative); Leukocyte Esterase Ur Negative LEU/UL (Negative); Nitrate Urine Negative (Negative); Protein Urine Negative (Negative); Specific Grav Ur 1.015 (1.010-1.020); Urobilinogen Urine 0.2 mg/dL (0.2-1.0)
[2023-02-10 09:00] LABS: Add Urine Microscopic? NO
[2023-02-10 09:02] LABS: Creatinine Urine 102.97 mg/dL (40-278); MALB Creatinine Ratio 18.8 mg/g (0-30); Microalbumin Urine Random 19.4 mg/L; Potassium Urine Random 65.9 mmol/L (12-62); Sodium Urine Random 125 mmol/L (20-110); Total Protein Urine Random 26.8 mg/dL (0.0-11.9)
[2023-02-10 09:43] LABS: Alanine Aminotransferase 22 U/L (14-59); Albumin Level 3.1 g/dL (3.4-5.0); Alkaline Phosphatase 112 U/L (46-116); Anion Gap 10 mmol/L (8-16); Aspartate Amino Transferase 16 U/L (15-37); Bilirubin,Total 0.6 mg/dL (0.00-1.00); Blood Urea Nitrogen 14 mg/dL (7-18); Calcium 8.7 mg/dL (8.5-10.1); Carbon Dioxide 27 mmol/L (21-32); Chloride 105 mmol/L (98-108); Estimated Glomerular Filt Rate > 60; Glucose 92 mg/dL (70-99); Osmolality Calculated 294 mOsm/kg (285-295); Phosphorus 3.7 mg/dL (2.6-4.7); Potassium 4.2 mmol/L (3.5-5.1); Sodium 142 mmol/L (136-145); Thyroid Stimulating Hormone 3.01 uIU/mL (0.36-3.74); Total Protein 6.2 g/dL (6.4-8.2); Uric Acid 5.7 mg/dL (2.6-6.0)
[2023-02-10 10:03] LABS: Erythrocyte Sedimentation Rate 17 mm/hr (0-20)
[2023-02-12 16:44] LABS: Osmolality, Urine 639 mOsm/kg (50-1200)
[2023-02-12 17:52] LABS: Vitamin D 25 Hydroxy 37 ng/mL (30-100)
[2023-02-13 01:26] LABS: Tacrolimus Prograf 5.4 mcg/L
[2023-02-14 14:12] LABS: Chloride Rand Ur 126 mmol/L (32-290); Chloride/Creatinine Rand Ur 130 (38-318); Creatinine Random Urine 97 mg/dL (20-275)
[2023-02-14 21:27] LABS: Parathyroid Intact 43 pg/mL (14-64)
== END 2023-02-10 08:17 | disposition home or self-care (01) ==
LOC: CHSLAB 08:25
DX: N18.30 Chronic kidney disease, stage 3 unspecified (principal); I12.9 Hypertensive chronic kidney disease with stage 1 through stage 4 chronic kidney disease, or unspecified chronic kidney disease; I50.9 Heart failure, unspecified; R80.9 Proteinuria, unspecified; E87.20 Acidosis, unspecified; D64.9 Anemia, unspecified; E11.65 Type 2 diabetes mellitus with hyperglycemia; R60.9 Edema, unspecified; E55.9 Vitamin D deficiency, unspecified; N39.0 Urinary tract infection, site not specified; R35.0 Frequency of micturition; E21.3 Hyperparathyroidism, unspecified; R94.6 Abnormal results of thyroid function studies
CPT/HCPCS: 36415; 80053; 80197; 81003; 81050; 82043; 82306; 82436; 82570; 83935; 83970; 84100; 84133; 84156; 84300; 84443; 84550; 85025; 85652

== ENCOUNTER 2023-03-01 09:04 | Outpatient (CLI) | payer MEDICARE, SELFPAY ==
[2023-03-01 09:16] LABS: Collection Time Urine 24 HOURS
[2023-03-01 09:32] LABS: Creatinine Urine 47.49 mg/dL (40-278); Patient Weight 177 Lbs
[2023-03-01 09:34] LABS: Serum Creat 0.64
[2023-03-01 09:43] LABS: Specific Gravity Ur 1.015; Total Protein Urine Random 8.8 mg/dL (0.0-11.9)
[2023-03-01 10:03] LABS: Total Protein Urine 24 Hr 132 mg/24hr (0-149)
[2023-03-01 17:05] LABS: Creatinine Clearance Urine 73.9 ml/min (97-137); Total Volume 24 Hour Urine 1500 ml
== END 2023-03-01 09:05 | disposition home or self-care (01) ==
LOC: CHSLAB 09:09
PROVIDERS: Visit Provider Specialist
DX: N18.30 Chronic kidney disease, stage 3 unspecified (principal)
CPT/HCPCS: 81050; 82575; 84156

== ENCOUNTER 2023-03-15 08:11 | Outpatient (RCR) | payer MEDICARE, SELFPAY ==
[2023-03-15 08:30] LABS: Hematocrit 40.2 % (35.0-42.0); Hemoglobin 12.6 g/dL (11.7-13.8); Mean Corpuscular HGB Conc 31.3 g/dL (32.0-36.0); Mean Corpuscular Hemoglobin 27.2 pg (27.0-31.0); Mean Corpuscular Volume 86.8 fL (78.0-102.0); Mean Platelet Volume 9.9 fl (9.2-11.8); Platelet Count Result 174 K/mm3 (150-420); Red Blood Count 4.63 M/mm3 (4.20-5.40); Red Cell Distribution Width 14.8 % (11.6-14.4); White Blood Count 5.6 K/mm3 (4.8-10.8)
[2023-03-15 09:26] LABS: Albumin Level 3.3 g/dL (3.4-5.0); Anion Gap 3 mmol/L (8-16); Blood Urea Nitrogen 13 mg/dL (7-18); Calcium 8.8 mg/dL (8.5-10.1); Carbon Dioxide 33 mmol/L (21-32); Chloride 104 mmol/L (98-108); Estimated Glomerular Filt Rate > 60; Glucose 88 mg/dL (70-99); Osmolality Calculated 289 mOsm/kg (285-295); Phosphorus 4.1 mg/dL (2.6-4.7); Sodium 140 mmol/L (136-145)
[2023-03-18 09:25] LABS: Tacrolimus Prograf 6.3 mcg/L
== END 2023-06-13 23:59 | disposition home or self-care (01) ==
LOC: CHSLAB 08:11
DX: Z94.0 Kidney transplant status (principal)
CPT/HCPCS: 36415; 80069; 80197; 85027

== ENCOUNTER 2023-04-13 08:08 | Outpatient (CLI) | payer MEDICARE, SELFPAY ==
[2023-04-13 08:40] LABS: Appearance Urine Clear (Clear); Bilirubin Urine Negative (Negative); Blood Urine Negative (Negative); Color Urine Light Yellow (Yellow); Glucose Urine UA Negative (Negative); Ketones Urine Negative (Negative); Leukocyte Esterase Ur Trace (Negative); Nitrate Urine Negative (Negative); Protein Urine Negative (Negative); Specific Grav Ur 1.015 (1.010-1.020); Urobilinogen Urine 0.2 mg/dL (0.2-1.0); pH Urine 6.5 (5.0-8.0)
[2023-04-13 08:44] LABS: Creatinine Urine 103.43 mg/dL (40-278); Ur Ttl Prot Creatinine Ratio 0.17 mg/mg (0-0.20)
[2023-04-13 08:48] LABS: Add Urine Microscopic? YES; RBC Urine None seen /hpf (0-2); WBC Urine 0-3 /hpf (0-3)
[2023-04-13 08:49] LABS: Bacteria Urine Trace /hpf; Squamous Epithelial Cell Urine Few /hpf (Few)
[2023-04-13 09:25] LABS: Albumin Level 2.8 g/dL (3.4-5.0); Anion Gap 10 mmol/L (8-16); Blood Urea Nitrogen 16 mg/dL (7-18); Calcium 8.8 mg/dL (8.5-10.1); Carbon Dioxide 28 mmol/L (21-32); Chloride 103 mmol/L (98-108); Estimated Glomerular Filt Rate > 60; Glucose 92 mg/dL (70-99); Magnesium 1.3 mg/dL (1.8-2.4); Osmolality Calculated 293 mOsm/kg (285-295); Phosphorus 3.7 mg/dL (2.6-4.7); Potassium 4.1 mmol/L (3.5-5.1); Sodium 141 mmol/L (136-145)
[2023-04-16 00:24] LABS: Tacrolimus Prograf 8.1 mcg/L
[2023-04-17 09:27] LABS: Hematocrit 44.9 % (35.0-42.0); Hemoglobin 12.7 g/dL (11.7-13.8); Mean Corpuscular HGB Conc 28.3 g/dL (32.0-36.0); Mean Corpuscular Hemoglobin 27.3 pg (27.0-31.0); Mean Corpuscular Volume 96.6 fL (78.0-102.0); Mean Platelet Volume 11.6 fl (9.2-11.8); Platelet Count Result 248 K/mm3 (150-420); Red Blood Count 4.65 M/mm3 (4.20-5.40); Red Cell Distribution Width 14.8 % (11.6-14.4); White Blood Count 6.1 K/mm3 (4.8-10.8)
== END 2023-04-13 08:09 | disposition home or self-care (01) ==
LOC: CHSLAB 08:15
DX: E83.49 Other disorders of magnesium metabolism (principal); Z94.0 Kidney transplant status; Z79.899 Other long term (current) drug therapy; Z79.4 Long term (current) use of insulin; D63.1 Anemia in chronic kidney disease
CPT/HCPCS: 36415; 80069; 80197; 81001; 82570; 83735; 84156; 85027

== ENCOUNTER 2023-07-18 08:27 | Outpatient (RCR) | payer MEDICARE, SELFPAY ==
[2023-06-15 09:32] LABS: Basophils Percent Auto 0.4 % (0.0-1.0); Hematocrit 37.9 % (35.0-42.0); Hemoglobin 12.2 g/dL (11.7-13.8); Immature Granulocyte Absolute 0.03 K/mm3 (0.00-0.00); Immature Granulocyte Percent A 0.7 % (0.0-0.0); Lymphocytes Absolute Auto 2.03 K/mm3 (1.10-4.50); Lymphocytes Percent Auto 44.2 % (18.0-42.0); Mean Corpuscular HGB Conc 32.2 g/dL (32-36); Mean Corpuscular Hemoglobin 27.9 pg (27.0-31.0); Mean Corpuscular Volume 86.7 fL (78.0-102.0); Mean Platelet Volume 10.1 fl (9.2-11.8); Monocytes Absolute Auto 0.35 K/mm3 (0.10-0.90); Monocytes Percent Auto 7.6 % (2.0-11.0); Neutrophils Absolute Auto 2.07 K/mm3 (1.70-7.20); Neutrophils Percent Auto 45.1 % (50.0-70.0); Platelet Count Result 167 K/mm3 (150-420); Red Blood Count 4.37 M/mm3 (4.20-5.40); Red Cell Distribution Width 15.5 % (11.6-14.4); White Blood Count 4.6 K/mm3 (4.8-10.8)
[2023-06-15 09:33] LABS: Basophils Absolute Auto 0.02 K/mm3 (0.00-0.10); Eosinophils Absolute Auto 0.09 K/mm3 (0.02-0.50)
[2023-06-15 10:25] LABS: Anion Gap 8 mmol/L (8-16); Blood Urea Nitrogen 19 mg/dL (7-18); Calcium 8.6 mg/dL (8.5-10.1); Carbon Dioxide 28 mmol/L (21-32); Chloride 106 mmol/L (98-108); Estimated Glomerular Filt Rate > 60; Glucose 114 mg/dL (70-99); Osmolality Calculated 297 mOsm/kg (285-295); Phosphorus 3.7 mg/dL (2.6-4.7); Potassium 4.5 mmol/L (3.5-5.1); Sodium 142 mmol/L (136-145)
[2023-06-17 19:09] LABS: Tacrolimus Prograf 6.5 mcg/L
[2023-07-18 08:37] LABS: Basophils Absolute Auto 0.04 K/mm3 (0.00-0.10); Basophils Percent Auto 0.6 % (0.0-1.0); Eosinophils Absolute Auto 0.08 K/mm3 (0.02-0.50); Eosinophils Percent Auto 1.3 % (1.0-6.0); Hematocrit 41.9 % (35.0-42.0); Hemoglobin 13.2 g/dL (11.7-13.8); Immature Granulocyte Absolute 0.03 K/mm3 (0.00-0.00); Immature Granulocyte Percent A 0.5 % (0.0-0.0); Lymphocytes Absolute Auto 2.52 K/mm3 (1.10-4.50); Lymphocytes Percent Auto 40.6 % (18.0-42.0); Mean Corpuscular HGB Conc 31.5 g/dL (32-36); Mean Corpuscular Hemoglobin 27.7 pg (27.0-31.0); Mean Corpuscular Volume 87.8 fL (78.0-102.0); Mean Platelet Volume 9.9 fl (9.2-11.8); Monocytes Absolute Auto 0.47 K/mm3 (0.10-0.90); Monocytes Percent Auto 7.6 % (2.0-11.0); Neutrophils Absolute Auto 3.07 K/mm3 (1.70-7.20); Neutrophils Percent Auto 49.4 % (50.0-70.0); Platelet Count Result 147 K/mm3 (150-420); Red Blood Count 4.77 M/mm3 (4.20-5.40); Red Cell Distribution Width 15.6 % (11.6-14.4); White Blood Count 6.2 K/mm3 (4.8-10.8)
[2023-07-18 09:13] LABS: Albumin Level 3.4 g/dL (3.4-5.0); Anion Gap 7 mmol/L (4-12); Blood Urea Nitrogen 18 mg/dL (7-18); Calcium 8.7 mg/dL (8.5-10.1); Carbon Dioxide 30 mmol/L (21-32); Chloride 105 mmol/L (98-108); Estimated Glomerular Filt Rate > 60; Glucose 89 mg/dL (70-99); Osmolality Calculated 294 mOsm/kg (285-295); Phosphorus 4.6 mg/dL (2.6-4.7); Potassium 4.1 mmol/L (3.5-5.1); Sodium 142 mmol/L (136-145)
== END 2023-09-13 23:59 | disposition home or self-care (01) ==
LOC: CHSLAB 08:27
PROVIDERS: Visit Provider Internal Medicine Nephrology
DX: E11.21 Type 2 diabetes mellitus with diabetic nephropathy (principal); D63.1 Anemia in chronic kidney disease; N18.6 End stage renal disease; Z94.0 Kidney transplant status
CPT/HCPCS: 36415; 80069; 80197; 85025

== ENCOUNTER 2023-08-23 08:17 | Outpatient (CLI) | payer MEDICARE, SELFPAY ==
[2023-08-23 08:52] LABS: Basophils Absolute Auto 0.04 K/mm3 (0.00-0.10); Basophils Percent Auto 0.8 % (0.0-1.0); Eosinophils Absolute Auto 0.09 K/mm3 (0.02-0.50); Eosinophils Percent Auto 1.8 % (1.0-6.0); Hematocrit 42.2 % (35.0-42.0); Hemoglobin 13.2 g/dL (11.7-13.8); Immature Granulocyte Absolute 0.02 K/mm3 (0.00-0.00); Immature Granulocyte Percent A 0.4 % (0.0-0.0); Lymphocytes Absolute Auto 2.42 K/mm3 (1.10-4.50); Lymphocytes Percent Auto 48.4 % (18.0-42.0); Mean Corpuscular HGB Conc 31.3 g/dL (32-36); Mean Corpuscular Hemoglobin 27.7 pg (27.0-31.0); Mean Corpuscular Volume 88.7 fL (78.0-102.0); Mean Platelet Volume 10.1 fl (9.2-11.8); Monocytes Absolute Auto 0.41 K/mm3 (0.10-0.90); Monocytes Percent Auto 8.2 % (2.0-11.0); Neutrophils Absolute Auto 2.02 K/mm3 (1.70-7.20); Neutrophils Percent Auto 40.4 % (50.0-70.0); Platelet Count Result 160 K/mm3 (150-420); Red Blood Count 4.76 M/mm3 (4.20-5.40); Red Cell Distribution Width 14.2 % (11.6-14.4)
[2023-08-23 09:45] LABS: Albumin Level 3.3 g/dL (3.4-5.0); Anion Gap 9 mmol/L (4-12); Blood Urea Nitrogen 16 mg/dL (7-18); Calcium 8.4 mg/dL (8.5-10.1); Carbon Dioxide 28 mmol/L (21-32); Chloride 105 mmol/L (98-108); Estimated Glomerular Filt Rate > 60; Glucose 81 mg/dL (70-99); Osmolality Calculated 294 mOsm/kg (285-295); Potassium 4.2 mmol/L (3.5-5.1); Sodium 142 mmol/L (136-145)
== END 2023-08-23 08:18 | disposition home or self-care (01) ==
LOC: CHSLAB 08:28
PROVIDERS: Visit Provider Internal Medicine Nephrology
DX: N18.6 End stage renal disease (principal); E11.21 Type 2 diabetes mellitus with diabetic nephropathy; D63.1 Anemia in chronic kidney disease; Z94.0 Kidney transplant status
CPT/HCPCS: 36415; 80069; 80197; 85025

== ENCOUNTER 2024-08-01 14:54 | Outpatient (CLI) | payer MEDICARE, SELFPAY ==
--- OUTSIDE RECORDS SUMMARY | 2024-08-01 15:36 | XMS_ITS | Clinical Summary ---
Author Organization [facility] Address [address] [place] [address] Care Team Providers Care Online Marketing Director Name Role Phone Unavailable Primary Care Provider Unavailabl e Social History Tobacco Use Types Packs/Day Years Used Date Smoking Tobacco: Never Assessed Comments Unknown Sex and Gender Information Value Date Recorded Sex Assigned at Not on file Legal Sex Female 2:19 PM AIRPORT GUIDE Gender Identity Not on file Sexual Orientation Not on file Plan of Treatment Health Maintenance Due Date Last Done Comments DIABETES ANNUAL RETINAL EXAM 1969 DIABETES MICROALBUMIN ANNUAL SCREEN 1969 LDL CHOLESTEROL ANNUAL 1969 FIT-DNA Q 3 years 01/03/1996 FIT/FOBT Q 1 year 01/03/1996 Flex Sig/CT Colonography Q 5 years 01/03/1996 RSV VACCINE (60+ or ) (1 - Risk 60-74 years 1-dose series) 2011 OSTEOPOROSIS SCREENING 06/20/2018 06/20/2013 ZOSTER VACCINE (3 of 3) 05/12/2020 03/17/2020, 11/13 BREAST CANCER SCREENING 12/07/2022 12/08/19 22, 12/07/2021, 10/20/2020, Additional history exists DIABETES HBA1C Q 6 MONTHS 04/14/2023 10/12/2022 DIABETES ANNUAL FOOT EXAM 10/27/2023 10/26/2022 INFLUENZA VACCINE (#1) 2023 3, 01/31/2022, 02/03/2021, Additional history exists COVID-19 Vaccine (2023-2 5 season) 2023 03/18/2022, 09/11/2021, 12/08/2020, Additional history exists DTAP/TDAP/TD VACCINES (2 - T d or Tdap) 11/26/2028 11/26/2018 COLORECTAL SCREENING 02/21/2033 02/21/2023, 02/22/20 23 Colorectal Cancer Screening 02/21/2033 PNEUMOCOCCAL VACCINE 50+ YEARS Completed 04/12/2017 , 02/13/2016 Insurance
--- OUTSIDE RECORDS SUMMARY | 2024-08-01 15:36 | XMS_ITS ---
Author Organization [facility] Address [address] [facility] [address] [facility] [[email or web address]] [address] [place] [address] Care Team Providers Care Manager Process Excellence Name Role Phone Anant Venu Unavailable [phone] PROBLEMS Problem Type ICD Code Onset Dates Problem Status W/U Status Risk SNOMED Code Notes Problem Chronic kidney disease, stage 2 (mild) (N18.2) Active confirmed Chronic kidne y disease stage 2 (217925232) Problem Kidney transplant status (Z94.0) Active confirmed History of re nal transplant (309028598) Problem Essential (primary) hypertension (I10) Active confirmed Essential hypertension (78114924) Problem Hyperlipidemia, unspecified (E78.5) Active confirmed Hyperlipidemia (47620557) Encounters Encounter Location Date Provider Diagnosis [facility] [address] [place] [address] 02/09/2023 Venu Ny Chronic kidney disea se, stage 2 (mild) N18.2 ; Kidney transplant status Z94.0 ; Essential (primary) hypertension I10 and Hyperlipidemia, unspecified E78.5 ASSESSMENTS Encounter Date Diagnosis Assessment Notes Treatment Notes Treatment Clinical Notes Section Notes 02/09/2023 Chronic kidney disease, stage 2 (mild) (ICD-10 - N18.2) 02/09/2023 Kidney transplant status (ICD-10 - Z94.0) 02/09/2023 Essential (primary) hypertension (ICD-10 - I10) 02/09/2023 Hyperlipidemia, unspecified (ICD-10 - E78.5) PLAN OF TREATMENT No Information Progress Notes * Guillermo MELÉNDEZ:1950 (74 yo F)Acc No.[id number]:02/09/2023 Progress Notes Patient: Taylor MELÉNDEZ Provider: MD RAMA, F.A.C.P, F.A.S.N. :1950 Age:73 Y Sex:Female Date:02/09/2023 Address:[address] [place] [address], [place] [address] Subjective: * Chief Complaints: * * Medical History: Objective: Assessment: * Assessment: 1. Chronic kidney disease, stage 2 (mild) - N18.2 2. Kidney transplant status - Z94.0 3. Essential (primary) hypertension - I10 4. Hyperlipidemia, unspecified - E78.5 Plan: * Treatment: * Billing Information: * Visit Code: 68414 Office Visit, New Pt., Level 4. * Procedure Codes: * Sign off status: Pending * Provider: MD RAMA, F.A.C.P, F.A.S.N. Date: 02/09/2023
--- OUTSIDE RECORDS SUMMARY | 2024-08-01 15:36 | XMS_ITS | Encounter Summary ---
Author Organization [facility] Address [address] [place] [address] Phone Care Team Providers Care Sas Programmer Name Role Phone Crispin Marcial MD Primary Care Provider [phone] Reason for Visit * Reason Comments Med Refill Encounter Details Date Type Department Care Team (Late st Contact Info) Description 01/08/2023 Refill [facility] [place] [address] [place] [address] Eric Turner MD [address] [place] [address] Social History Tobacco Use Types Packs/Day Years Used Date Smoking Tobacco: Never Smokeless Tobacco: Never Alcohol Use Standard Drinks/Week Comments No 0 (1 standard drink = 0.6 oz pur e alcohol) AUDIT-C Answer Date Recorded Frequency of Alcohol Consumption Never 03/22/2018 Average Number of Drinks Not on file 018 Frequency of Binge Drinking Not on file 03/04 Comments Unknown Sex and Gender Information Value Date Recorded Sex Assigned at Not on file Legal Sex Female 12:01 PM EST Gender Identity Not on file Sexual Orientation Not on file documented as of this encounter Plan of Treatment Upcoming Encounters Date Type Department Care Team (Late st Contact Info) Description 12/11/2024 11:00 AM CDT Office Visit [facility] [address] [facility] [address] [place] [address] Yuan White MD [address] [facility] [address] [place] [address] documented as of this encounter Visit Diagnoses Not on filedocumented in this encounter Care Teams Sas Programmer Relationship Specialty Start Date End Date Crispin Marcial MD [address] [place] [address] PCP - General 01/24/17 documented as of this encounter
--- OUTSIDE RECORDS SUMMARY | 2024-08-01 15:37 | XMS_ITS ---
Author Organization [facility] Address [address] [place] [address] [place] [address] Care Team Providers Care University Administrator Name Role Phone Anant Venu Unavailable [phone] MEDICATIONS Medication SIG (Take, Route, Frequency, Duration) Notes Start Date End Date Status Calcitriol 0.25 MCG 1 capsule Orally Onc e a day for 90 day(s) 03/09/2023 12/04/2023 Active Ergocalciferol 1.25 MG (00588 UT) 1 capsule Orally Once a week for 90 day(s) 03/09/2023 12/04/2023 Active Encounters Encounter Location Date Provider Diagnosis [place] [facility] [address] [facility] [address] [place] [address] 03/09/2023 Venu Ny PLAN OF TREATMENT Medication Medication Name Sig Start Date Stop Date Notes Calcitriol 0.25 MCG 1 capsule Orally Onc e a day for 90 day(s) 03/09/2023 12/04/2023 Ergocalciferol 1.25 MG (5000 0 UT) 1 capsule Orally Once a week for 90 day(s) 03/09/2023 12/04/2023 Progress Notes * AMRITALeonor MillerAugustine:1950 (73 yo F)Acc No.[id number]:03/09/2023 Patient: Taylor MELÉNDEZ :1950 Age:73 Y Sex:Female Address:[address] [place] [address], [place] [address] * Refills Start Ergocalciferol Capsule, 1.25 MG (27504 UT), Orally, 13, 1 capsule, Once a week, 90 day(s), Refills=2 Start Calcitriol Capsule, 0.25 MCG, Orally, 90 Capsule, 1 capsule, Once a day, 90 day(s), Refills=2 * true * Date:
--- OUTSIDE RECORDS SUMMARY | 2024-08-01 15:37 | XMS_ITS ---
Author Organization [facility] Address [address] [place] [address] Phone Care Team Providers Care Chair Spring Assembler Name Role Phone Crispin Marcial MD Primary Care Provider [phone] Transplant Episode Kidney Recipient [facility] ([place], [place]) - [facility] Transplanted on 06/01/2009 Marked as Active Follow-up on 06/01/2009 Kidney CoordinatorJones Noonan MD Email: N/A Care Team Name Role Phone Fax Email Jones Noonan MD Kidney Coordinator [phone] N/A Events Post-Transplant Pre-Transplant Transplanted: 06/01/2009
--- OUTSIDE RECORDS SUMMARY | 2024-08-01 15:37 | XMS_ITS | Encounter Summary ---
Author Organization [facility] Address [address] [place] [address] Phone Care Team Providers Care Fiber Optic Splicer Name Role Phone Crispin Marcial MD Primary Care Provider [phone] Reason for Visit * Reason Comments Med Refill Encounter Details Date Type Department Care Team (Late st Contact Info) Description 02/04/2021 Refill [facility] [place] [address] [place] [address] Eric Turner MD [address] [place] [address] Social History Tobacco Use Types Packs/Day [...] Description 12/11/2024 11:00 AM CDT Office Visit [facility] [address] [facility] [address] [place] [address] Yuan White MD [address] [facility] [address] [place] [address] documented as of this encounter Visit Diagnoses Not on filedocumented in this encounter Care Teams Fiber Optic Splicer Relationship Specialty Start Date End Date Crispin Marcial MD [address] [place] [phone] PCP - General 01/24/17 documented as of this encounter
--- OUTSIDE RECORDS SUMMARY | 2024-08-01 15:37 | XMS_ITS | Encounter Summary ---
Author Organization [facility] Address [address] [place] [address] Phone Care Team Providers Care Felter Tennis Balls Name Role Phone Crispin Marcial MD Primary Care Provider [phone] Reason for Visit * Reason Comments Med Refill Encounter Details Date Type Department Care Team (Late st Contact Info) Description 02/08/2020 Refill [facility] [place] [address] [place] [address] Eric Turner MD [address] [place] [address] Social History Tobacco Use Types Packs/Day [...] Description 12/11/2024 11:00 AM CDT Office Visit [facility] [address] [facility] [address] [place] [address] Yuan White MD [address] [facility] [address] [place] [phone] documented as of this encounter Visit Diagnoses Not on filedocumented in this encounter Care Teams Felter Tennis Balls Relationship Specialty Start Date End Date Crispin Marcial MD [address] [place] [phone] PCP - General 01/24/17 documented as of this encounter
--- OUTSIDE RECORDS SUMMARY | 2024-08-01 15:37 | XMS_ITS | Clinical Summary ---
Author Organization [facility] Address [address] [place] [address] Phone Care Team Providers Care Housekeeper Home Name Role Phone Crispin Marcial MD Primary Care Provider [phone] Allergies Active Allergy Reactions Criticality Noted Date Comments [address] 03/04/2010 Iodinated Contrast Media Hives 02/21/2008 IVP dye Penicillins 03/04/2010 Sulfa Antibiotics Other (see comments) High 03/04/20 10 Gatifloxacin 03/04/2010 Medications insulin glargine (LANTUS) 100 UNIT/ML injection Inject 10 Units under the skin 1 (one) time each day 06/02/2016 Active magnesium oxide (MAG-OX) 400 MG tablet Take 2 tablets by mouth in the morning and 2 tablets in the evening. 05/02/2013 Active Multiple Vitamins-Minera ls (MULTIVITAMIN ADULT PO) Take 1 tablet by mouth once a day 03/04/2010 Active IRON PO Take 1 tablet by mouth every other day. Active Multiple Vitamins-Minera ls (PRESERVISION AREDS 2 PO) Take 1 tablet by mouth 1 (one) time each day Active rosuvastatin (CRESTOR) 5 MG tablet Take 5 mg by mouth every other day 06/28/2020 Active metFORMIN (GLUCOPHAGE) 500 MG tablet Take 500 mg by mouth 1 (one) time each day 12/14/2020 Active lisinopril 10 MG tablet TAKE 1 TABLET BY MOUTH EVERY DAY 90 tablet 3 04/05/2021 Active predniSONE 5 MG tablet TAKE 1 TABLET BY MOUTH EVERY DAY 30 tablet 11 07/04/2022 Active omeprazole (PriLOSEC) [address] capsule TAKE 1 CAPSULE (20 MG) BY MOUTH ONE TIME EACH DAY DO NOT CRUSH OR CHEW. 90 capsule 11 07/18/2022 Active tacrolimus (PROGRAF) 1 MG capsule TAKE 1 CAPSULE BY MOUTH 2 TIMES A DAY FOR A TOTAL DOSE 1.5 MG 2 TIMES DAILY DX: Z94.0 180 capsule 2 10/10/2022 Active tacrolimus (PROGRAF) 0.5 MG capsule Take 1 capsule (0.5 mg total) by mouth in the morning and 1 capsule (0.5 mg total) in the evening. 180 capsule 3 01/19/2023 Active mycophenolate (MYFORTIC) 180 MG EC tablet TAKE 3 TABLETS BY MOUTH 2 TIMES A DAY 540 tablet 8 03/15/2023 Active dilTIAZem CD (CARDIZEM CD) 300 MG 24 hr capsule Take 300 mg by mouth 1 (one) time each day Active apixaban (Eliquis) 5 MG tablet Take 5 mg by mouth in the morning and 5 mg in the evening. Active Active Problems Problem Noted Date Diagnosed Date Type 2 diabetes mellitus wit h diabetic chronic kidney disease 06/02/2022 Hypertensive chronic kidney disease, unspecified, with chronic kidney disease stage I through stage IV, or unspecified 06/02/2022 Chronic kidney disease, stage 2 (mild) Anemia 04/18/2019 Disorder of kidney 04/18/2019 Hepatomegaly 08/31/2017 Gastroesophageal reflux disease 02/09/2017 History of renal transplant 02/09/2017 Hyperlipidemia 02/09/2017 Polycystic kidney disease, adult type Hypertension Resolved Problems Problem Noted Date Diagnosed Date Resolved Date Essential hypertension 02/09/201706/02 Type 2 diabetes mellitus without complication 02/10/20 17 02/10/2017 Type 2 diabetes mellitus 05/2022 Encounters Date Type Department Care Team Description 07/29/2024 Documentation Only [facility] [address] [facility] [address] [place] [address] Yuan White MD 07/29/2024 Documentation Only [facility] 2 [facility] [address] [place] [address] Yuan White MD 07/05/2024 Orders Only [facility] 2 [facility] [address] [place] [address] America Martinez MA End stage renal disease (HCC); Hypertension; Kidney replaced by transplant; Other alf current drug therapy; Autosomal dominant polycystic kidney disease 06/30/2024 Refill [facility] [place] [address] [facility] [address] [place] [address] Yuan White MD 06/12/2024 10:30 AM CDT Office Visit [facility] [address] [facility] [address] [place] [address] Yuan White MD End stage renal disease (HCC) (Primary Dx); Stage 1 chronic kidney disease; Kidney replaced by transplant; Hypertension; Type 2 diabetes mellitus with diabetic nephropathy (HCC); Kidney transplant status; Other tree warden current drug therapy 06/12/2024 Documentation Only [facility] [address] [facility] [address] [place] [address] America Martinez MA from Last 3 Months Immunizations Immunization Administration Dates Next Due Influenza Split High Dose Preservative Free IM 1 Pneumococcal Conjugate 13-Valent 02/13/2016 Zoster 11/14/2019 Family History Medical History Relation Comments Hypertension Father Diabetes Mother Hypertension Mother Stroke Mother Relation Status Comments Father Mother Social History Tobacco Use Types Packs/Day Years Used Date Smoking Tobacco: Never Smokeless Tobacco: Never Tobacco Cessation:Counseling Given: Not Answered Alcohol Use Standard Drinks/Week Comments No 0 [...] on file Sexual Orientation Not on file Last Filed Vital Signs Vital Sign Reading Time Taken Comments Blood Pressure 131/83 06/12/2024 10:44 AM CDT Pulse 87 06/12/2024 10:44 AM CDT Temperature 36.7 C (98 F) 06/12/2024 10:44 AM CDT Respiratory Rate - - Oxygen Saturation 97% 06/12/2024 10:44 AM CDT Inhaled Oxygen Concentration - - Weight 71.4 kg (157 lb 8 oz) 06/12/2024 10:44 AM CDT Height 160 cm (5' 3 ) 06/12/2024 10:44 AM CDT Body Mass Index 27.9 06/12/2024 10:44 AM CDT Plan of Treatment Upcoming Encounters Date Type Department Care Team (Late st Contact Info) Description 12/11/2024 11:00 AM CDT Office Visit [facility] [address] [facility] [place] [place] [address] Yuan White MD [address] [facility] [place] [address] Health Maintenance Due Date Last Done Comments Breast Cancer Screening 1950 Hepatitis B Vaccine (1 of 3 - Risk 3-dose series) 2011 Colonoscopy (Post-Transplant Patient) 05/19/2023 Diabetes: Ophthalmology Exam 05/19/2023 Diabetes: Pedal Pulse Checked 05/19/2023 Diabetes: Sensory Foot Exam 05/19/2023 Diabetes: Visual Foot Exam 05/19/2023 Mammogram (Post-Transplant Patient) 05/19/2023 Pelvic Exam (Post-Transplant Patient) 05/19/2023 Diabetes: Hemoglobin A1C 07/28/2024 025, 11/29/2023, 10/13/2023, Additional history exists Pneumococcal Vaccine: 50+ Years Completed 8, 02/13/2016 Colorectal Cancer Screening: Colonoscopy Discontinued 02/21/2023 Influenza Vaccine Completed 02/19/2024, , 11/28/2019, Additional history exists Procedures Procedure Name Priority Date/Time Associated Diagnosis Comments EXT RESULT ENTRY Routine 10/12/2022 from Last 3 Months or Most Recently Relevant to Health Maintenance Results * (ABNORMAL) EXT RESULT ENTRY (10/12/2022) WBC 5.9 3.3 - 10.0 10*3/ML Red Blood Cell Count 4.55 Hemoglobin 12.1 12.0 - 16.0 Hematocrit 42.1 36.0 - 46.0 Platelets 225 150 - 399 10*3/UL MCV 92.5 82.0 - 108.0 Iron 39 UG/DL Iron Saturation (TSat) 13 % TIBC 289 ug/dL Ferritin 75.0 9.0 - 150.0 NG/ML Sodium 143 137 - 147 Potassium 4.2 3.4 - 5.5 Chloride 105.0 99.0 - 108.0 Carbon Dioxide 29 mmol/L Anion Gap 9 <=30 MMOL/L Glucose 97 60 - 200 BUN 18 4 - 21 mg/dL Creatinine 0.77 0.50 - 1.10 mg/dL Albumin 3.2(A) 3.5 - 5.0 g/dL Calcium 8.9 8.7 - 10.7 mg/dL Phosphorus, Serum 5.0 eGFR 61 Osmolality Calc 297.0 mosm/kg Magnesium 1.6 1.6 - 2.4 Hemoglobin A1C 7.5(A) 4.0 - 6.0 Protein Urine Random 28 Creatinine, Urine Random 111.82 mg/dL Urine Protein/Creatin ine Ratio 0.25 mg/g creat Glucose, UA Negative mg/dL Bilirubin, UA Negative Ketones, UA Negative Spec Grav, UA 1.010 Blood, UA Negative Rm/ul pH, UA 6.0 Protein, UA Negative mg/dL Urobilinogen, UA 0.2 Nitrite, UA Positive Leukocytes, UA Trace WBC, Urine Comment:0-3 RBC, Urine Comment:none seen Epithelial Cells in Urine Comment:few Bacteria, Urine Comment:3+ 10/12/2022 Eric Turner MD LAB BLOOD ORDERABLES Final R esult from Last 3 Months or Most Recently Relevant to Health Maintenance Insurance [employer]na MCR Adv HMO ([id number]) Aetna MCR Adv PPO ([id number]) Aetna MCR Adv PPO ([id number]) [facility]ena [facility] Adv PPO ([id number]) A[employer]na [facility] Adv PPO ([phone]) Care Teams Housekeeper Home Relationship Specialty Start Date End Date Crispin Marcial MD [address] [place] [address] PCP - General 01/24/17
--- OUTSIDE RECORDS SUMMARY | 2024-08-01 15:37 | XMS_ITS ---
Author Organization [facility] Address [address] [place] [address] Phone Care Team Providers Care Shoulder Sawyer Name Role Phone Crispin Marcial MD Primary Care Provider [phone] Transplant Episode Kidney Recipient [facility] ([place], [place]) - [facility] Organ Received: Right Kidney Transplanted on 06/14/2009 Marked as Active Follow-up on 06/14/2009 Kidney CoordinatorNelida Gandara RN Phone: N/A Fax: N/A Email: N/A [place] Organ Diagnosis Organ Primary Contributory Kidney Polycystic Kidneys Donor Information Organ ABO Source Meets Risk Criteria HLA Match Mismatches Cross Match Right Kidney Transplanted O DBD Yes A: B: DR: T cell (Negative) B cell (Negative) T cell (Negative) B cell (Negative) Right Kidney Donor Serology Results Anti-CMV CMV IgG: Positive EBV IgG EBV VCA IgG: Positive Anti-HBcAb HBC Total: Negative HBsAg HBsAg: Negative HBV DNA No results on file Anti-HCV HCV RIBA: Negative HCV Ab: Negative HCV RNA: Negative Anti-HIV I/II HIV-1: Negative HIV-2: Negative Anti-HTLV I/II HTLV: Negative RPR/VDRL RPR: Negative EBV IgM EBV VCA IgM: Negative HBsAb No results on file EBNA EBV DNA: Positive Toxoplasma No results on file SARS CoV-2 No results on file Care Team Name Role Phone Fax Email Nelida Gandara RN Kidney Coordinator N/A N/A N/A Events Post-Transplant Pre-Transplant Admitted: 06/13/2009 Center waitlisted: 4 Transplanted: 06/14/2009 Discharged: 06/19/2009 Dialysis History Dialysis History Start End Type Comments Center 11/03/2003 06/13/2009 Maintenance (Type Unknown)
--- OUTSIDE RECORDS SUMMARY | 2024-08-01 15:37 | XMS_ITS | Encounter Summary ---
Author Organization [facility] Address [address] [facility] [address] [place] [address] Phone Care Team Providers Care Blacksmith Assistant Name Role Phone Crispin Marcial MD Primary Care Provider [phone] Reason for Visit * Reason Comments Med Refill Encounter Details Date Type Department Care Team (Late Contact Info) Description 11/18/2017 Refill [facility] [place] [address] [facility] [address] [place] [address] Ángel Eid MD [address] [facility] [address] [place] [address] Social History Tobacco Use Types Packs/Day Years Used Date Smoking Tobacco: Never Smokeless Tobacco: Never Comments Unknown Sex and Gender Information Value Date Recorded Sex Assigned at Not on file Legal Sex Female 12:01 PM EST Gender Identity Not on file Sexual Orientation Not on file documented as of this encounter Plan of Treatment Upcoming Encounters Date Type Department Care Team (Late Contact Info) Description 12/11/2024 11:00 AM CDT Office Visit [facility] 2 [facility] [place] [address] Yuan White MD [address] [place] [address] [place] [id number] documented as of this encounter Visit Diagnoses Not on filedocumented in this encounter Care Teams Blacksmith Assistant Relationship Specialty Start Date End Date Crispin Marcial MD [address] [place] [address] [place] [address] PCP - General 01/24/17 documented as of this encounter
--- OUTSIDE RECORDS SUMMARY | 2024-08-01 15:37 | XMS_ITS | Encounter Summary ---
Author Organization [facility] Address [address] [place] [address] Phone Care Team Providers Care Heavy Equipment Rental Associate Name Role Phone Crispin Marcial MD Primary Care Provider [phone] Reason for Visit * Reason Comments Med Refill Encounter Details Date Type Department Care Team (Late st Contact Info) Description 02/19/2021 Refill [facility] [place] [address] [place] [address] Eric Turner MD [address] [place] [address] Social History Tobacco Use Types Packs/Day [...] on file Sexual Orientation Not on file COVID-19 Exposure Response Date Recorded In the last month, have you been in contact with someone who was confirmed or suspected to have Coronavirus / COVID-19? No / Unsure 02/15/2021 11:42 AM EST documented as of this encounter Plan of Treatment Upcoming Encounters Date Type Department Care Team (Late st Contact Info) Description 12/11/2024 11:00 AM CDT Office Visit [facility] 2 [facility] [address] [place] [address] Yuan White MD [address] [facility] [address] [place] [address] documented as of this encounter Visit Diagnoses Not on filedocumented in this encounter Care Teams Heavy Equipment Rental Associate Relationship Specialty Start Date End Date Crispin Marcial MD [address] [place] [id number] PCP - General 01/24/17 documented as of this encounter
--- OUTSIDE RECORDS SUMMARY | 2024-08-01 15:37 | XMS_ITS | Encounter Summary ---
Author Organization [facility] Address [address] [place] [address] Phone Care Team Providers Care Radiator Tester Name Role Phone Crispin Marcial MD Primary Care Provider [phone] Reason for Visit * Reason Comments Med Refill Encounter Details Date Type Department Care Team (Late st Contact Info) Description 02/28/2020 Refill [facility] [place] [address] [place] [address] Eric Turner MD [address] [place] [address] Social History Tobacco Use Types Packs/Day [...] Description 12/11/2024 11:00 AM CDT Office Visit [facility] [address] [facility] [address] [place] [address] Yuan White MD [address] [facility] [address] [place] [address] documented as of this encounter Visit Diagnoses Not on filedocumented in this encounter Care Teams Radiator Tester Relationship Specialty Start Date End Date Crispin Marcial MD [address] [place] [address] PCP - General 01/24/17 documented as of this encounter
--- OUTSIDE RECORDS SUMMARY | 2024-08-01 15:37 | XMS_ITS | Encounter Summary ---
Author Organization [facility] Address [address] [facility] [address] [place] [address] Phone Care Team Providers Care Clerk Funeral Detail Name Role Phone Crispin Marcial MD Primary Care Provider [phone] Reason for Visit * Reason Comments Med Refill Encounter Details Date Type Department Care Team (Late st Contact Info) Description 04/17/2017 Refill [facility] [place] [address] [facility] [address] [place] [address] Ángel Eid MD [address] [facility] [address] [place] [address] Social History Tobacco Use Types Packs/Day Years Used Date Smoking Tobacco: Never Assessed Comments Unknown Sex and Gender Information Value Date Recorded Sex Assigned at Not on file Legal Sex Female 12:01 PM EST Gender Identity Not on file Sexual Orientation Not on file documented as of this encounter Miscellaneous Notes * Telephone Encounter - Shilpi Hernandez RN - 04/17/2017 3:13 PM CST Patient now sees DCR documented in this encounter Plan of Treatment Upcoming Encounters Date Type Department Care Team (Late st Contact Info) Description 12/11/2024 11:00 AM CDT Office Visit [facility] [address] [facility] [address] [place] [address] Yuan White MD [address] [facility] [address] [place] [address] documented as of this encounter Visit Diagnoses Not on filedocumented in this encounter Care Teams Clerk Funeral Detail Relationship Specialty Start Date End Date Crispin Marcial MD [facility] [place] [address] PCP - General 01/24/17 documented as of this encounter
--- OUTSIDE RECORDS SUMMARY | 2024-08-01 15:37 | XMS_ITS | Encounter Summary ---
Author Organization [facility] Address [address] [facility] [address] [place] [address] Phone Care Team Providers Care Out Of Town Collection Clerk Name Role Phone Crispin Marcial MD Primary Care Provider [phone] Reason for Visit * Reason Comments Med Refill Encounter Details Date Type Department Care Team (Late Contact Info) Description 06/09/2017 Refill [facility] [place] [address] [facility] [address] [place] [address] Ángel Eid MD [address] [facility] [address] [place] [address] Social History Tobacco Use Types Packs/Day [...] Description 12/11/2024 11:00 AM CDT Office Visit [facility] [address] [facility] [address] [place] [address] Yuan White MD [address] [place] [address] [phone] documented as of this encounter Visit Diagnoses Not on filedocumented in this encounter Care Teams Out Of Town Collection Clerk Relationship Specialty Start Date End Date Crispin Marcial MD [address] [place] [address] PCP - General 01/24/17 documented as of this encounter
--- OUTSIDE RECORDS SUMMARY | 2024-08-01 15:37 | XMS_ITS | Clinical Summary ---
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 Name Role Phone Crispin Marcial MD Primary Care Provider [phone] Allergies Active Allergy Reactions Criticality Noted Date Comments Venus Additives Hives Medium 06/19/2009 No citrus foods Venus And Derivatives Hives Medium 06/19/2009 No citrus foods Gatifloxacin Other (See comments) Low 02/21/2008 High blood sugar Iodinated Contrast Media Hives Medium 02/21/2008 IVP dye Iodine Unknown 10/26/2022 Penicillins Rash Medium 02/21/2008 Sulfa (Sulfonamide Antibiotics) Other (See comments) High 02/21/2008 fever Medications tacrolimus (PROGRAF) 0.5 mg immediate-release capsule 1 capsule (0.5 mg total) 2 (two) times a day Takes first dose at 9 AM Active tacrolimus (PROGRAF) 1 mg immediate-release capsule Take 1 capsule (1 mg total) by mouth 2 (two) times a day Takes first dose at 9 AM Active my[address] sodium DR (MYFORTIC) 180 mg EC tablet Take 3 tablets (540 mg total) by mouth 2 (two) times a day Takes first dose at 9 AM Active metFORMIN (FORTAMET) 500 mg 24 hr tablet Take 1 tablet (500 mg total) by mouth nightly Active predniSONE 5 mg tablet,delayed release (DR/EC) Take 1 tablet by mouth daily Takes at 9 AM 12/31 Patient taking 5mg daily. TC 3 Active lisinopriL (PRINIVIL,ZESTRIL ) 10 mg tablet Take 1 tablet (10 mg total) by mouth daily Active multivitamin-mine rals-lutein tablet Take 1 tablet by mouth daily Active omega-3 fatty acids-fish oil 300-1,000 mg capsule Take 2 capsules (2 g total) by mouth daily Active vit C,Q-Nk-tqtyz-lute in-zeaxan 250-90-40-1 mg capsule Take 1 capsule by mouth daily Active iron bisgly,ps-FA-B-C# 12-succ 65 mg-65 mg -1,000 mcg (24) tablet Take 1 tablet by mouth every other day Active magnesium oxide (MAG-OX) 400 mg (241.3 mg elemental magnesium) tabletIndications :hypomagnesemia Take 1 tablet (400 mg total) by mouth 2 (two) times a day Active omeprazole (PriLOSEC) 20 mg capsule Take 1 capsule (20 mg total) by mouth daily Active rosuvastatin (CRESTOR) 5 mg tablet Take 1 tablet (5 mg total) by mouth every other day Active insulin glargine 100 unit/mL (3 mL) pen for injection Inject 16 Units under the skin daily 15 mL 4 Active apixaban (ELIQUIS) 5 mg tabletIndications :atrial fibrillation Take 1 tablet (5 mg total) by mouth every 12 (twelve) hours 180 tablet 3 4 Active carvediloL (COREG) 3.125 mg tablet Take 1 tablet (3.125 mg total) by mouth 2 (two) times a day with meals 180 tablet 3 4 10/20/19 25 Active dilTIAZem CD (CARDIZEM CD) 300 mg 24 hr capsule Take 1 capsule (300 mg total) by mouth daily 90 capsule 3 4 12/07/19 25 Active albuterol HFA (PROVENTIL HFA,VENTOLIN HFA,PROAIR HFA) 90 mcg/actuation inhaler Inhale 2 puffs every 4 (four) hours as needed for wheezing or shortness of breath 1 each 4 Active cyclobenzaprine (FLEXERIL) 10 mg tablet Take 1 tablet (10 mg total) by mouth 2 (two) times a day as needed for muscle spasms 20 tablet Active Active Problems Problem Noted Date Diagnosed Date Hypersomnolence 11/01/2023 Pulmonary hypertension 10/27/2023 On continuous oral anticoagulation 10/27/2023 Paroxysmal atrial fibrillation 10/27/2023 Pneumonia of left lower lobe due to infectious o rganism 04/30/2023 Dyspnea on exertion 04/30/2023 Encounter for screening for malignant neoplasm o f colon 01/23/2023 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 Essential hypertension 12/16/2022 Polycystic kidney, adult type 12/16/2022 Type 2 diabetes mellitus wit h diabetic chronic kidney disease 06/02/2022 Stage 2 chronic kidney disease 11/04/2020 Disorder of kidney 04/18/2019 Anemia 04/18/2019 Hepatomegaly 08/31/2017 Gastroesophageal reflux disease 02/09/2017 History of renal transplant 02/09/2017 Hyperlipidemia 02/09/2017 Encounters Date Type Department Care Team Description 07/25/2024 8:35 AM CDT Lab [facility] [address] [place] [address] 05/29/2024 7:55 AM [employer]IC[employer]AF[employer]CH[employer] STRIPPER Lab [facility] [address] [place] [address] from Last 3 Months Immunizations Immunization Administration Dates Next Due Influenza, Unspecified 01/01/2023 Surgical History Surgery Date Site/Laterality Comments KIDNEY TRANSPLANT 1991 left; 2009 right AV FISTULA PLACEMENT Left TONSILLECTOMY UTERINE FIBROID SURGERY APPENDECTOMY OOPHORECTOMY HYSTERECTOMY NEPHRECTOMY Bilateral CHOLECYSTECTOMY PARATHYROID GLAND SURGERY COLONOSCOPY 02/21/2023 patient believes last colonoscopy around 2017 , repeat screening ORGAN TRANSPLANT ABDOMINAL SURGERY Medical History Medical History Date Comments CKD (chronic kidney disease) Type 2 diabetes mellitus (HCC) Hypertension GERD (gastroesophageal reflux disease) Enlarged liver History of polycystic kidney disease History of anemia Hx of kidney transplant Anemia Osteoporosis Sciatica Family History Medical History Relation Name Comments Esophageal cancer Father Diabetes Mother Stroke Mother Relation Name Status Comments Father Mother Social History Tobacco Use Types Packs/Day Years Used Date Smoking Tobacco: Never Passive Smoke Exposure: Past Smokeless Tobacco: Never Tobacco Cessation:Counseling Given: Not Answered [facility] Utilities Answer Date Recorded In the past 12 months has e BBspace, gas, oil, or water [employer] threatened to shut off services in your home? No 09/12/2023 Social Connection and Isolat ion Panel [NHANES] Answer Date Recorded In a typical week, how many times do you talk on the phone with family, friends, or neighbors? More than three times a week 09/12/2023 How often do you get togethe r with friends or relatives? More than three times a week 09/12/2023 Attends [employer] Not on file 09/11 Active Member of Clubs or Organizations Not on f ile 09/12/2023 Attends Club or Organization Meetings Not on mumtaz e 09/12/2023 Are you , , di vorced, , never , or living with a partner? 09/12/2023 AUDIT-C Answer Date Recorded Q1: How often do you have a drink containing alcohol? Never 09/11/2023 Q2: How many drinks containi ng alcohol do you have on a typical day when you are drinking? Patient does not drink Q3: How often do you have si x or more drinks on one occasion? Never 09/11/2023 Overall Financial Resource Strain (CARDIA) Answe r Date Recorded How hard is it for you to pa y for the very basics like food, housing, medical care, and heating? Not hard at all 09/12/2023 Hunger Vital Sign Answer Date Recorded Within the past 12 months, y ou worried that your food would run out before you got the money to buy more. Never true 09/12/19 24 Within the past 12 months, t he food you bought just didn't last and you didn't have money to get more. Never true 09/12/2023 PRAPARE - Transportation Answer Date Re corded In the past 12 months, has l ack of transportation kept you from medical appointments or from getting medications? No 09/01 In the past 12 months, has l ack of transportation kept you from meetings, work, or from getting things needed for daily living? No 09/12/2023 Housing Stability Vital Sign Answer Joe e Recorded In the last 12 months, was t here a time when you were not able to pay the mortgage or rent on time? No 09/12/2023 In the past 12 months, how m any times have you moved where you were living? 0 09/12/2023 At any time in the past 12 m [facility], were you homeless or living in a care home (including now)? No 09/12/2023 Personal Safety Answer Date Recorded Have you ever been in or are you currently in a harmful physical or emotional relationship or is someone making you feel afraid or unsafe? Denies 01/14/2024 Comments No Sex and Gender Information Value Date Recorded Sex Assigned at Not on file Legal Sex Female 11:59 AM CDT Gender Identity Female 11/21/2022 12:16 PM CDT Sexual Orientation Not on file Obstetrics History Para Term AB IAB SAB Ectopic Multiple Livin g Live Births 2 2 2 Date Outcome GA Total Labor Labor//3rd Weight Sex Type Anes PTL Felipa A1 A5 Name Clin Term Term Last Filed Vital Signs Vital Sign Reading Time Taken Comments Blood Pressure 119/74 05/02/2024 11:27 AM [employer] Pulse 66 05/02/2024 11:27 AM [employer]IPPER Temperature 36.9 C (98.5 F) 01/31/2024 10:09 AM CDT Respiratory Rate 16 05/02/2024 11:27 AM [employer]IPPER Oxygen Saturation 96% 05/02/2024 11:27 AM [employer] STRIPPER Inhaled Oxygen Concentration - - Weight 70.8 kg (156 lb) 05/02/2024 11:27 AM [employer]IPPER Height 160 cm (5' 2.99 ) 05/02/2024 11:27 AM [employer] STRIPPER Body Mass Index 27.64 05/02/2024 11:27 AM [employer] STRIPPER Plan of Treatment Health Maintenance Due Date Last Done Comments Depression Screening 1950 Hepatitis C Screening 1950 Dilated Eye Exam 1950 Foot Exam 1950 Hepatitis B Screening 1969 Osteoporosis Screening-Bone Density Scan 06/21/2015 06/20/2013, 06/20/2013 Well Visit 65+ 01/03/2016 Zoster Vaccine (2 of 2) 05/12/2020 03/17/2020, 11/13 Covid-19 Vaccine (2023-2 5 season) 2023 03/18/2022, 09/11/2021, 12/08/2020, Additional history exists Hemoglobin A1C 05/31/2024 11/29/2023, 10/13/2023 Fall Risk Assessment 09/13/2024 09/14/2023 Albumin Creatinine Ratio, Urine 10/12/2024 Lipid Panel 10/12/2024 10/13/2023 Breast Cancer Screening-Mammogram 01/17/2025 01/18/2024, 01/18/2024, 12/07/2021, Additional history exists eGFR 07/25/2025 07/25/2024, 05/05, 04/17/2024, Additional history exists DTaP/Tdap/Td Vaccine (2 - Td or Tdap) 11/26/2028 11/26/2018 Colon Cancer Screening-Colonoscopy 02/21/20332022 Pneumococcal vaccine 65+ Completed 04/12/2017, 02/01 Influenza Vaccine Completed 02/19/2024, , 01/31/2022, Additional history exists Procedures Procedure Name Priority Date/Time Associated Diagnosis Comments EGFR Routine 07/25/2024 8:42 AM CDT TACROLIMUS LEVEL, RANDOM Routine 07/25/2024 8:42 AM CDT CBC WITHOUT DIFFERENTIAL Routine 07/25/2024 8:42 AM CDT RENAL FUNCTION PANEL Routine 07/25/2024 8:42 AM CDT EGFR Routine 05/29/2024 8:22 AM [employer]IPPER DIFFERENTIAL AUTO Routine 05/29/2024 8:2 2 AM [employer] STRIPPER TACROLIMUS LEVEL, RANDOM Routine 05/29/2024 8:22 AM [employer] STRIPPER PTH Routine 05/29/2024 8:22 AM [employer] STRIPPER RENAL FUNCTION PANEL Routine 05/29/2024 8:22 AM [employer] STRIPPER CBC WITH AUTO DIFFERENTIAL Routine 05/29/2024 8:22 AM [employer]IC[employer] STRIPPER SCREENING MAMMOGRAM BILATERAL W SHAHZAD Schedule Routine, Read Routine (OP Routine) 01/18/2024 3:27 PM CDT Screening mammogram, encounter for HEMOGLOBIN A1C Routine 11/29/2023 8:11 AM CDT LIPID PANEL Routine 10/13/2023 8:22 AM CDT ALBUMIN CREATININE RATIO, URINE Routine 10/13/2023 8:22 AM CDT COLONOSCOPY 02/21/2023 9:08 AM [employer] STRIPPER from Last 3 Months or Most Recently Relevant to Health Maintenance Results * eGFR (07/25/2024 8:42 AM CDT) eGFR 80 >=60 mL/min/1. 73 m2 Comment: Interpretive Data Reference Interval Normal >/= 90 mL/min/1.73m2 Mildly decreased* 60 - 89 mL/min/1.73m2 Mildly to moderately decreased 45 - 59 mL/min/1.73m2 Moderately to severely decreased 30 - 44 mL/min/1.73m2 Severely decreased 15 - 29 mL/min/1.73m2 Kidney Failure < 15 mL/min/1.73m2 *Relative to young adult level Estimated glomerular filtration rate is determined by the 2020 CKD-EPI equation recommended by the National Kidney Foundation (A Unifying Approach to GFR Estimation: Recommendations of the NKF-ASK Task Force on Reassessing the Inclusion of Race in Diagnosing Kidney Disease, JASN 2020). The CKD-EPI equation should not be used for patients with unstable renal function and has not been validated in children and those over 70. Current interpretive data was last reviewed 2021. Testing performed by: [facility], [id number] [place] [address], [place]., [address] Blood 07/25/2024 8:42 AM CDT 07/25/2024 7:03 PM CDT us Yuan White MD LAB BLOOD ORDERABLES Final Re sult [facility] [place]) 1 [facility] Department [place] [address] * Tacrolimus level random (07/25/2024 8:42 AM CDT) Tacrolimus random 19.2 ng/mL Comment: Interpretive Data Testing performed by liquid chromatography-tandem mass spectrometry. Therapeutic concentrations vary depending on type of transplanted organ and time elapsed since transplant. Typical trough concentrations range from 5-15 ng/mL. This test was developed and its performance characteristics determined by the [facility] consistent with CLIA requirements. This test has not been cleared or approved by the US Food and Drug administration. Current interpretive data last reviewed 2019. Testing performed by: [facility], [address] [place]., [address] Blood 07/25/2024 8:42 AM CDT 07/25/2024 7:58 PM CDT Yuan White MD LAB BLOOD ORDERABLES Final Re sult [facility] ([place]) 1 [facility] Department [place] [address] * (ABNORMAL) CBC without differential (07/25/2024 8:42 AM CDT) Pathologist [facility] WBC 5.93 3.80 - 9.90 K/cumm Comment:Testing performed by : [facility], [address] [place] [address]., [address] Hgb 11.7(L) 11.9 - 15.5 g/dL [facility] ([place]) Comment:Testing performed by : [address], [address] Hct 38.7 35.6 - 45.5 % [facility] ([place]) Comment:Testing performed by : [address], [address] Plt 243 150 - 400 K/cumm [facility] ([place]) Comment:Testing performed by : [address], [address] MPV 9.9 9.1 - 12.3 fL [facility] ([place]) Comment:Testing performed by : [address], [address] RBC 4.30 3.90 - 5.20 M/cumm [facility] ([place]) Comment:Testing performed by : [address], [address] MCV 90.0 81.3 - 96.4 fL [facility] ([place]) Comment:Testing performed by : [address], [address] MCH 27.2 27.1 - 33.3 pg [facility] ([place]) Comment:Testing performed by : [address], [address] MCHC 30.2(L) 32.3 - 35.7 g/dL [facility] ([place]) Comment:Testing performed by : [address], [address] RDW CV 14.0 11.1 - 14.9 % [facility] ([place]) Comment:Testing performed by : [address], [address] RDW SD 46.2 35.7 - 48.1 fL [facility] ([place]) Comment:Testing performed by : [address], [address] NRBC abs 0.00 0.00 - 0.01 K/cumm [facility] ([place]) Comment:Testing performed by : [address], [address] Blood 07/25/2024 8:42 AM CDT 07/25/2024 8:43 AM CDT us Yuan White MD LAB BLOOD ORDERABLES Final Re sult [facility] ([place]) 1 [facility] Department [place] [address] * (ABNORMAL) Renal function panel (07/25/2024 8:42 AM CDT) Sodium 136 135 - 145 mmol/L Comment:Testing performed by : [address] [address] Potassium, pl 5.0(H) 3.3 - 4.9 mmol/L [facility] ([place]) Comment:Testing performed by : [facility], [address] [place] [address]., [address] Chloride 104 97 - 110 mmol/L [facility] ([place]) Comment:Testing performed by : [address], [address] CO2 23 22 - 32 mmol/L [facility] ([place]) Comment:Testing performed by : [facility], [address] [place] [address], [address] Anion gap 9 2 - 15 mmol/L [facility] ([place]) Comment:Testing performed by : [address], [address] BUN 15 6 - 25 mg/dL [facility] ([place]) Comment:Testing performed by : [address], [address] Creatinine 0.78 0.60 - 1.10 mg/dL [facility] ([place]) Comment:Testing performed by : [address], [address] Glucose 134 70 - 199 mg/dL [facility] ([place]) Comment: Interpretive Data Fasting glucose >/= 126 mg/dl is diagnostic for diabetes. Fasting is defined as no caloric intake for at least 8 hours. Fasting glucose between 100 mg/dl to 125 mg/dl is diagnostic of prediabetes. In a patient with classic symptoms of hyperglycemia or hyperglycemic crisis, a random glucose >/= 200 mg/dl is diagnostic for diabetes. In the absence of unequivocal hyperglycemia, results should be confirmed by repeat testing. The classification and Diagnosis of Diabetes Diabetes Care 202; 46: S19-S40. Current interpretive data was last revised 2022. Testing performed by: [address] [address] Calcium 8.9 8.5 - 10.3 mg/dL [facility] ([place]) Comment:Testing performed by : [address], [address] Phosphorus, pl 2.8 2.3 - 4.5 mg/dL [facility] ([place]) Comment:Testing performed by : [facility], [address] [place] [address]., [address] Albumin 3.4(L) 3.5 - 5.0 g/dL [facility] ([place]) Comment:Testing performed by : [facility], [address] [place] [address]., [address] Blood 07/25/2024 8:42 AM CDT 07/25/2024 8:42 AM CDT Yuan White MD LAB BLOOD ORDERABLES Final Re sult [facility] ([place]) 1 [facility] [place] [address] * eGFR (05/29/2024 8:22 AM [employer] STRIPPER) eGFR >90 >=60 mL/min/1. 73 m2 Comment: Interpretive Data Reference Interval Normal >/= 90 mL/min/1.73m2 Mildly decreased* 60 - 89 mL/min/1.73m2 Mildly to moderately decreased 45 - 59 mL/min/1.73m2 Moderately to severely decreased 30 - 44 mL/min/1.73m2 Severely decreased 15 - 29 mL/min/1.73m2 Kidney Failure < 15 mL/min/1.73m2 *Relative to young adult level Estimated glomerular filtration rate is determined by the 2020 CKD-EPI equation recommended by the National Kidney Foundation (A Unifying Approach to GFR Estimation: Recommendations of the NKF-ASK Task Force on Reassessing the Inclusion of Race in Diagnosing Kidney Disease, JASN 2020). The CKD-EPI equation should not be used for patients with unstable renal function and has not been validated in children and those over 70. Current interpretive data was last reviewed 2021. Blood 05/29/2024 8:22 AM [employer] STRIPPER 05/29/2024 8:31 AM [employer] STRIPPER us Yuan White MD LAB BLOOD ORDERABLES Final Re sult [facility] ([place]) 1 [facility] [place] [address] * Differential, auto (05/29/2024 8:22 AM [employer] STRIPPER) Neutrophil abs 2.5 1.5 - 6.5 K/cumm Imm gran abs 0.0 0.0 - 0.1 K/cumm [facility] ([place]) Lymphocyte abs 2.0 0.8 - 3.3 K/cumm [facility] ([place]) Monocyte abs 0.5 0.2 - 0.8 K/cumm [facility] ([place]) Eosinophil abs 0.1 0.0 - 0.5 K/cumm [facility] ([place]) Basophil abs 0.0 0.0 - 0.1 K/cumm [facility] ([place]) Neutrophil pct 48.3 % [facility] ([place]) Comment: Interpretive Data Percent cell count reference ranges are not reported, since discordance with absolute values may lead to misinterpretation of CBC data. Current Interpretive Data was last revised on 2017. Imm gran pct 0.4 % [facility] ([place]) Comment: Interpretive Data Percent cell count reference ranges are not reported, since discordance with absolute values may lead to misinterpretation of CBC data. Current Interpretive Data was last revised on 2017. Lymphocyte pct 39.4 % [facility] ([place]) Comment: Interpretive Data Percent cell count reference ranges are not reported, since discordance with absolute values may lead to misinterpretation of CBC data. Current Interpretive Data was last revised on 2017. Monocyte pct 9.9 % [facility] ([place]) Comment: Interpretive Data Percent cell count reference ranges are not reported, since discordance with absolute values may lead to misinterpretation of CBC data. Current Interpretive Data was last revised on 2017. Eosinophil pct 1.6 % [facility] ([place]) Comment: Interpretive Data Percent cell count reference ranges are not reported, since discordance with absolute values may lead to misinterpretation of CBC data. Current Interpretive Data was last revised on 2017. Basophil pct 0.4 % [facility] ([place]) Comment: Interpretive Data Percent cell count reference ranges are not reported, since discordance with absolute values may lead to misinterpretation of CBC data. Current Interpretive Data was last revised on 2017. Blood 05/29/2024 8:22 AM [employer] STRIPPER 05/29/2024 8:31 AM [employer] STRIPPER Yuan White MD LAB BLOOD ORDERABLES Final Re sult Performing Organization Address City/[facility]/ZIP Co de Phone Number [facility] ([place]) 1 [facility] Department [place] [address] * (ABNORMAL) CBC with auto differential (05/29/2024 8:22 AM [employer] STRIPPER) WBC 5.1 3.8 - 9.9 K/cumm Hgb 12.8 11.9 - 15.5 g/dL [facility] ([place]) Hct 39.8 35.6 - 45.5 % [facility] ([place]) Plt 142(L) 150 - 400 K/cumm [facility] ([place]) MPV 9.8 9.1 - 12.3 fL [facility] ([place]) RBC 4.45 3.90 - 5.20 M/cumm [facility] ([place]) MCV 89.4 81.3 - 96.4 fL [facility] ([place]) MCH 28.8 27.1 - 33.3 pg [facility] ([place]) MCHC 32.2(L) 32.3 - 35.7 g/dL [facility] ([place]) RDW CV 13.3 11.1 - 14.9 % [facility] ([place]) RDW SD 43.0 35.7 - 48.1 fL [facility] ([place]) NRBC abs 0.00 0.00 - 0.01 K/cumm [facility] ([place]) Blood 05/29/2024 8:22 AM [employer] STRIPPER 05/29/2024 8:31 AM [employer] STRIPPER Yuan White MD LAB BLOOD ORDERABLES Final Re sult [facility] ([place]) 1 [facility] [place] [address] * Tacrolimus level random (05/29/2024 8:22 AM [employer] STRIPPER) Pathologist [facility] Tacrolimus random 9.3 ng/mL Comment: Interpretive Data Testing performed by liquid chromatography-tandem mass spectrometry. Therapeutic concentrations vary depending on type of transplanted organ and time elapsed since transplant. Typical trough concentrations range from 5-15 ng/mL. This test was developed and its performance characteristics determined by the [facility] consistent with CLIA requirements. This test has not been cleared or approved by the US Food and Drug administration. Current interpretive data last reviewed 2019. Testing performed by: [facility], 1 [facility] [place]., [address] Blood 05/29/2024 8:22 AM [employer] STRIPPER 05/29/2024 11:54 AM [employer] STRIPPER us Yuan White MD LAB BLOOD ORDERABLES Final Re sult Performing Organization Address [facility] Co de Phone Number [facility] ([place]) 1 [facility] [employer] [place] [address] * PTH (05/29/2024 8:22 AM [employer] STRIPPER) Pathologist [facility] PTH 38 15 - 65 pg/mL Blood 05/29/2024 8:22 AM [employer] STRIPPER 05/29/2024 8:31 AM [employer] STRIPPER Yuan White MD LAB BLOOD ORDERABLES Final Re sult Performing Organization Address [facility] Co de Phone Number [facility] ([place]) 1 [facility] [employer] [place] [address] * Renal function panel (05/29/2024 8:22 AM [employer] STRIPPER) Pathologist [facility] Sodium 136 135 - 145 mmol/L Potassium, pl 4.3 3.3 - 4.9 mmol/L [facility] ([place]) Chloride 103 97 - 110 mmol/L [facility] ([place]) CO2 24 22 - 32 mmol/L [facility] ([place]) Anion gap 9 2 - 15 mmol/L [facility] ([place]) BUN 15 6 - 25 mg/dL [facility] ([place]) Creatinine 0.60 0.60 - 1.10 mg/dL [facility] ([place]) Glucose 177 70 - 199 mg/dL [facility] ([place]) Comment: Interpretive Data Fasting glucose >/= 126 mg/dl is diagnostic for diabetes. Fasting is defined as no caloric intake for at least 8 hours. Fasting glucose between 100 mg/dl to 125 mg/dl is diagnostic of prediabetes. In a patient with classic symptoms of hyperglycemia or hyperglycemic crisis, a random glucose >/= 200 mg/dl is diagnostic for diabetes. In the absence of unequivocal hyperglycemia, results should be confirmed by repeat testing. The classification and Diagnosis of Diabetes Diabetes Care 202; 46: S19-S40. Current interpretive data was last revised 2022. Calcium 9.1 8.5 - 10.3 mg/dL [facility] ([place]) Phosphorus, pl 3.5 2.3 - 4.5 mg/dL [facility] ([place]) Albumin 3.9 3.5 - 5.0 g/dL [facility] ([place]) Blood 05/29/2024 8:22 AM SEMICONDUCTOR WAFERS ETCHER STRIPPER 05/29/2024 8:31 AM SEMICONDUCTOR WAFERS ETCHER STRIPPER Yuan White MD LAB BLOOD ORDERABLES Final Re sult [facility] ([place]) 1 [facility] Department [place] [address] * Screening Mammogram Bilateral W Shahzad (01/18/2024 3:27 PM CDT) Anatomical Region Laterality Modality Breast Bilateral Mammography 01/19/2024 2:33 PM CDT Impressions 01/19/2024 2:33 PM CDT No evidence of malignancy in either breast. FINAL ASSESSMENT: BI-RADS Category 1: Negative. RECOMMENDATION: Recommend return for annual screening mammogram in 12 months. Electronically signed by: Solo Mo M.D. Narrative 01/19/2024 2:33 PM CDT EXAMINATION: BILATERAL SCREENING MAMMOGRAM COMPARISON: Prior mammogram from 12/21/2022 - [place], [place] TECHNIQUE: Full-field 2D and digital breast tomosynthesis (DBT) images were obtained. CAD was utilized. BREAST PARENCHYMAL COMPOSITION: There are scattered areas of fibroglandular density. FINDINGS: There is no suspicious mass, calcification, or distortion in either breast. There has been no suspicious interval change involving either breast. Self Screening Mammogram IMG MAMMO PROCEDURES Fi nal Result * (ABNORMAL) Hemoglobin A1c (11/29/2023 8:11 AM CDT) Hgb A1C 9.2(H) 4.0 - 5.6 % Comment:Testing performed by : [facility], [address] [place] [address]., [address] Estimated Average Glucose 217 mg/dL [facility] ([place]) Comment: The ADA recommends reporting an estimated Average Glucose (eAG) with all Hemoglobin A1c results using the equation derived from a study of 507 normal and diabetic adults. Minority populations were underrepresented and children were not included. (Diabetes Care 31:3385-6569, 2008). The eAG is not equivalent to a fasting glucose. Testing performed by: [facility], [address] [place] [address]., [address] Blood 11/29/2023 8:11 AM CDT 11/29/2023 8:12 AM CDT Yuan White MD LAB BLOOD ORDERABLES Final Re sult [facility] ([place]) 1 [facility] Department [place] [address] * Albumin Creatinine Ratio, Urine (10/13/2023 8:22 AM CDT) Albumin Ur 15.6 mg/L Comment: Interpretive Data No reference range established. Current interpretive data was last revised 2018. Testing performed by: [address] [address] Creatinine Ur 83.5 mg/dL [facility] ([place]) Comment: Interpretive Data No reference range established. Current interpretive data was last revised 2018. Testing performed by: [facility], [address] [place] [address]., [address] Albumin Creatinine Ratio, Ur 19 1 - 29 mg/g [facility] ([place]) Comment:Testing performed by : [facility], [address] [place] [address]., [address] Urine 10/13/2023 8:22 AM CDT 10/13/2023 12:52 PM CDT Crispin Marcial MD LAB URINE ORDERABLES Final R esult [facility] ([place]) 1 [facility] Department [place] [address] * (ABNORMAL) Lipid panel (10/13/2023 8:22 AM CDT) Cholesterol 160 30 - 199 mg/dL Comment: Interpretive Data Ages < or = 19 years Acceptable: <170 mg/dL Borderline high: 170-199 mg/dL High: >or= 200 mg/dL Ages > or = 20 years Desirable: <200 mg/dL Borderline high: 200-239 mg/dL High: >or= 240 mg/dL Literature References: 1. Expert Panel on Integrated Guidelines for Cardiovascular Health and Risk Reduction in Children and Adolescents. Pediatrics 2011;128:S213 2. NCEP Expert Panel. Circulation 2004;110:227 Current Interpretive Data was last revised on 2017. Testing performed by: [facility], [address] [place] [address]., [address] Triglycerides 198(H) <=149 mg/dL [facility] ([place]) Comment: Interpretive Data Ages < or = 9 years Acceptable: <75 mg/dL Borderline high: 75-99 mg/dL High: >or= 100 mg/dL Ages 10 to 20 years Acceptable: <90 mg/dL Borderline high: 90-129 mg/dL High: >or= 130 mg/dL Ages > or = 20 years Desirable: <150 mg/dL Borderline high: 150-199 mg/dL High: 200-499 mg/dL Very high: >or= 499 mg/dL Literature References: 1. Expert Panel on Integrated Guidelines for Cardiovascular Health and Risk Reduction in Children and Adolescents. Pediatrics 2011;128:S213 2. NCEP Expert Panel. Circulation 2004;110:227 Current Interpretive Data was last revised on 2017. Testing performed by: [facility], [address] [place] [address]., [address] HDL 58 >=40 mg/dL [facility] ([place]) Comment: Interpretive Data Ages < or = 19 years Acceptable: >45 mg/dL Borderline low: 40-45 mg/dL Low: <40 mg/dL Ages > or = 20 years Desirable: >or= 60 mg/dL Low: <40 mg/dL Literature References: 1. Expert Panel on Integrated Guidelines for Cardiovascular Health and Risk Reduction in Children and Adolescents. Pediatrics 2011;128:S213 2. NCEP Expert Panel. Circulation 2004;110:227 Current Interpretive Data was last revised on 2017. Testing performed by: [facility], [address] [place] [address]., [address] LDL, calculated 62 <=129 mg/dL [facility] ([place]) Comment: Interpretive Data Ages < or = 19 years Acceptable: <110 mg/dL Borderline high: 110-129 mg/dL High: >or= 130 mg/dL Ages > or = 20 years Optimal: <100 mg/dL Near optimal: 100-129 mg/dL Borderline high: 130-159 mg/dL High: >160 mg/dL Literature References: 1. Expert Panel on Integrated Guidelines for Cardiovascular Health and Risk Reduction in Children and Adolescents. Pediatrics 2011;128:S213 2. NCEP Expert Panel. Circulation 2003;110:227 Current Interpretive Data was last revised on 2017. Testing performed by: [facility], [address] [place] [address]., [address] Non-HDL Cholesterol 102 mg/dL [facility] ([place]) Comment: Interpretive Data Ages < or = 19 years Acceptable: <120 mg/dL Borderline high: 120-144 mg/dL High: >145 mg/dL Ages > or = 20 years When triglycerides are >200 mg/dL, Non-HDL cholesterol is a secondary target of therapy with treatment goals that are 30 mg/dL greater than the LDL cholesterol target. Literature References: 1. Expert Panel on Integrated Guidelines for Cardiovascular Health and Risk Reduction in Children and Adolescents. Pediatrics 2011;128:S213 2. NCEP Expert Panel. Circulation 2004;110:227 Current Interpretive Data was last revised on 2017. Testing performed by: [facility], [address] [place] [address], [address] Chol/HDL ratio 3 MELISSA Lafleur [facility] ([place]) Comment:Testing performed by : [facility], [address] [place] [address], [address] Blood 10/13/2023 8:22 AM CDT 10/13/2023 12:52 PM CDT us Crispin Marcial MD LAB BLOOD ORDERABLES Final R esult [facility] ([place]) 1 [facility] Department of Laboratories [place], [place] [id number] * COLONOSCOPY (02/21/2023 9:08 AM SEMICONDUCTOR WAFERS ETCHER STRIPPER) Anatomical Region Laterality Modality Other Narrative Procedure Note Tracy Lees MD - 02/21/2023 9:08 AM CST [facility] Endoscopy Lab Patient Name: Taylor Rodrigues Procedure Date: 02/21/2023 9:08 AM Date of : 1950 Admit Type: Outpatient Age: 73 Gender: Female Note Status: Finalized Attending MD: Tracy Lees M.D. Procedure Date: 02/21/2023 Procedure: Colonoscopy Indications: High risk colon cancer surveillance: Personalhistory of colonic polyps Providers: Tracy Lees M.D., Vianney Garcia CRNA (Anesthesia Staff), Sahara Duong RN, Marsha, Commissary Officer Referring MD: Crispin Marcial Medicines: Monitored Anesthesia Care Complications: No immediate complications. Estimated Blood Loss: Estimated blood loss was minimal. Procedure: Pre-Anesthesia Assessment: - Prior to the procedure, a History and Physicalwas performed, and patient medications and allergieswere reviewed. The patient's tolerance of previous anesthesia was also reviewed. The risks andbenefits of the procedure and the sedation options and risks were discussed with the patient. All questions were answered, and informed consent was obtained. Prior Anticoagulants: The patient has taken noanticoagulant or antiplatelet agents. ASA Grade Assessment: IV -A patient with severe systemic disease that is a constant threat to life. After reviewing the risksand benefits, the patient was deemed in satisfactory condition to undergo the procedure. - Prior to the procedure, a History and Physicalwas performed, and patient medications, allergies and sensitivities were reviewed. The patient'stolerance of previous anesthesia was reviewed. - The risks and benefits of the procedure and the sedation options and risks were discussed with the patient. All questions were answered and informed consent was obtained. After I obtained informed consent, the scope was passed under direct vision. Throughout theprocedure, the patient's blood pressure, pulse, and oxygen saturations were monitored continuously. The scopewas passed under direct vision. The Colonoscope was introduced through the anus and advanced to the the terminal ileum. The colonoscopy was performedwithout difficulty. The patient tolerated the procedurewell. The quality of the bowel preparation was evaluated using the BBPS ([place] Bowel Preparation Scale)with scores of: Right Colon = 2 (minor amount ofresidual staining, small fragments of stool and/or opaque liquid, but mucosa seen well), Transverse Colon = 3 (entire mucosa seen well with no residual staining, small fragments of stool or opaque liquid) and Left Colon = 2 (minor amount of residual staining, small fragments of stool and/or opaque liquid, but mucosa seen well). The total BBPS score equals 7. Thequality of the bowel preparation was good. The terminalileum, ileocecal valve, appendiceal orifice, and rectumwere photographed. The quality of the bowel preparationwas good. The bowel preparation used was SUPREP viasplit dose instruction. Findings: The terminal ileum appeared normal. Three sessile polyps were found in the sigmoid colon, descendingcolon and transverse colon. The polyps were 1 to 2 mm in size. These polyps were removed with a cold biopsy forceps. Resection and retrieval were complete. Many small and large-mouthed diverticula were found in the entirecolon. Non-bleeding external and internal hemorrhoids were found during retroflexion. The hemorrhoids were moderate. The digital rectal exam was normal. Impression: - The examined portion of the ileum was normal. - Three 1 to 2 mm polyps in the sigmoid colon, inthe descending colon and in the transverse colon,removed with a cold biopsy forceps. Resected andretrieved. - Diverticulosis in the entire examined colon. - Non-bleeding external and internal hemorrhoids. Recommendation: - Patient has a contact number available for emergencies. The signs and symptoms of potential delayed complications were discussed with thepatient. Return to normal activities tomorrow. Written discharge instructions were provided to thepatient. - Resume previous diet. - Continue present medications. - Await pathology results. - Repeat colonoscopy is not recommended due tocurrent age (66 years or older) for surveillance. Procedure Code(s): --- Professional --- 53654, Colonoscopy, flexible; with biopsy, singleor multiple Diagnosis Code(s): --- Professional --- Z86.010, Personal history of colonic polyps K64.8, Other hemorrhoids D12.5, Benign neoplasm of sigmoid colon D12.4, Benign neoplasm of descending colon D12.3, Benign neoplasm of transverse colon (hepatic flexure or splenic flexure) K57.30, Diverticulosis of large intestine without perforation or abscess without bleeding CPT copyright 2020 [employer]. All rights reserved. The codes documented in this report are preliminary and upon break up worker reviewmay be revised to meet current compliance requirements. Dr. Tracy Lees MD [facility] Tracy Lees M.D. 02/21/2023 10:50:19 AM Number of Addenda: 0 Note Initiated On: 02/21/2023 9:08 AM Tracy Lees MD ENDOSCOPY PROCEDURES Final Result from Last 3 Months or Most Recently Relevant to Health Maintenance Insurance AETNA MEDICARE TNA MEDICARE AETNA MEDICARE Advance Directives For more information, please contact: [phone] * Full Code (Latest Code Status on File) Date Activated Date Inactivated Comments 09/11/2023 11:40 AM 09/14/2023 9:31 PM * Full Code Date Activated Date Inactivated Comments 04/30/2023 6:45 PM 05/05/2023 4:43 PM Care Teams Retail Leasing Agent Relationship Specialty Start Date End Date Crispin Marcial MD [facility] [place] [address] PCP - General Internal Medicine 05/02/24
--- OUTSIDE RECORDS SUMMARY | 2024-08-01 15:37 | XMS_ITS | Encounter Summary ---
Author Organization [facility] Address [address] [place] [address] Phone Care Team Providers Care Employee Relations Specialist Name Role Phone Crispin Marcial MD Primary Care Provider [phone] Encounter Details Date Type Department Care Team (Late Contact Info) Description 08/31/2017 Orders Only [facility] [place] [address] [place] [address] Eric Turner MD [address] [place] [address] Hepatomegaly Social History Tobacco Use Types Packs/Day Years [...] Description 12/11/2024 11:00 AM CDT Office Visit [facility] [address] [place] [address] Yuan White MD [address] [facility] [place] [address] documented as of this encounter Visit Diagnoses Diagnosis Hepatomegaly documented in this encounter Care Teams Employee Relations Specialist Relationship Specialty Start Date End Date Crispin Marcial MD [address] [place] [address] PCP - General 01/24/17 documented as of this encounter
--- OUTSIDE RECORDS SUMMARY | 2024-08-01 15:37 | XMS_ITS | Encounter Summary ---
Author Organization [facility] Address [address] [place] [address] Phone Care Team Providers Care Gatekeeper Name Role Phone Crispin Marcial MD Primary Care Provider [phone] Reason for Visit * Reason Comments Med Refill Encounter Details Date Type Department Care Team (Late st Contact Info) Description 09/01/2020 Refill [facility] [place] [address] [place] [address] Eric Turner MD [address] [place] [address] Social History Tobacco Use Types Packs/Day [...] have Coronavirus / COVID-19? No / Unsure 08/06/2020 11:51 AM EDT documented as of this encounter Plan of Treatment Upcoming Encounters Date Type Department Care Team (Late st Contact Info) Description 12/11/2024 11:00 AM CDT Office Visit [facility] [address] [facility] [facility] [address] [place] [address] Yuan White MD [address] [facility] [place] [address] documented as of this encounter Visit Diagnoses Not on filedocumented in this encounter Care Teams Gatekeeper Relationship Specialty Start Date End Date Crispin Marcial MD [address] [place] [phone] PCP - General 01/24/17 documented as of this encounter
--- OUTSIDE RECORDS SUMMARY | 2024-08-01 15:37 | XMS_ITS | Encounter Summary ---
Author Organization [facility] Address [address] [place] [address] Phone Care Team Providers Care Software Design Engineer Name Role Phone Crispin Marcial MD Primary Care Provider [phone] Reason for Visit * Reason Comments Med Refill Encounter Details Date Type Department Care Team (Late st Contact Info) Description 01/29/2022 Refill [facility] [place] [address] [place] [address] Eric Turner MD [address] [place] [address] Social History Tobacco Use Types Packs/Day [...] Description 12/11/2024 11:00 AM CDT Office Visit [facility] [address] [facility] [address] [place] [address] Yuan White MD [address] [facility] [address] [place] [address] documented as of this encounter Visit Diagnoses Not on filedocumented in this encounter Care Teams Software Design Engineer Relationship Specialty Start Date End Date Crispin Marcial MD [address] [place] [address] PCP - General 01/24/17 documented as of this encounter
--- OUTSIDE RECORDS SUMMARY | 2024-08-01 15:37 | XMS_ITS ---
Author Organization [facility] Address [address] [facility] [address] [facility] [address] [place] [address] Care Team Providers Care Auto Suspension And Steering Mechanic Name Role Phone Anant Venu Unavailable [phone] Encounters Encounter Location Date Provider Diagnosis Faisal Kerr [address] [place] [address] 03/09/2023 [place] Chronic kidney disea se, stage 2 (mild) N18.2 ; Kidney transplant status Z94.0 ; Essential (primary) hypertension I10 and Hyperlipidemia, unspecified E78.5 ASSESSMENTS Encounter Date Diagnosis Assessment Notes Treatment Notes Treatment Clinical Notes Section Notes 03/09/2023 Chronic kidney disease, stage 2 (mild) (ICD-10 - N18.2) 03/09/2023 Kidney transplant status (ICD-10 - Z94.0) 03/09/2023 Essential (primary) hypertension (ICD-10 - I10) 03/09/2023 Hyperlipidemia, unspecified (ICD-10 - E78.5) PLAN OF TREATMENT No Information Progress Notes * Brody MELÉNDEZB:1950 (74 yo F)Acc No.[id number]:03/09/2023 Progress Notes Patient: Taylor MELÉNDEZ Provider: MD RAMA, F.A.C.P, F.A.S.N. :1950 Age:73 Y Sex:Female Date:03/09/2023 Address:[address] [place] [address], [facility] Subjective: * Chief Complaints: * * Medical History: Objective: Assessment: * Assessment: 1. Chronic kidney disease, stage 2 (mild) - N18.2 2. Kidney transplant status - Z94.0 3. Essential (primary) hypertension - I10 4. Hyperlipidemia, unspecified - E78.5 Plan: * Treatment: * Billing Information: * Visit Code: 95460 Office Visit, Est Pt., Level 4. * Procedure Codes: * Sign off status: Pending * Provider: MD RAMA, F.A.C.P, F.A.S.N. Date: 03/09/2023
--- OUTSIDE RECORDS SUMMARY | 2024-08-01 15:37 | XMS_ITS | Patient Health Record ---
Author Organization [facility] Address [address] [place] [address] REASON FOR REFERRAL No Information PROBLEMS Problem Type ICD Code Onset Dates Problem Status W/U Status Risk SNOMED Code Notes Problem Hyperlipidemia, unspecified (E78.5) Active confirmed Hyperlipidemia (06550688) Problem Essential (primary) hypertension (I10) Active confirmed Essential hypertension (38026327) Problem Chronic kidney disease, stage 2 (mild) (N18.2) Active confirmed Chronic kidne y disease stage 2 (410268386) Problem Kidney transplant status (Z94.0) Active confirmed History of re nal transplant (063941869) PLAN OF TREATMENT No Information
--- OUTSIDE RECORDS SUMMARY | 2024-08-01 15:37 | XMS_ITS | Encounter Summary ---
Author Organization [facility] Address [address] [place] [address] Phone Care Team Providers Care Numerologist Name Role Phone Crispin Marcial MD Primary Care Provider [phone] Reason for Visit * Reason Comments Med Refill Encounter Details Date Type Department Care Team (Late st Contact Info) Description 10/09/2022 Refill [facility] [place] [address] [place] [address] Eric Turner MD [address] [place] [address] Social History Tobacco Use Types [...] Exposure Response Date Recorded In the last 10 days, have yo u been in contact with someone who was confirmed or suspected to have Coronavirus/COVID-19? No / Unsure 09/27/2022 12:22 AM EDT documented as of this encounter Plan of Treatment Upcoming Encounters Date Type Department Care Team (Late st Contact Info) Description 12/11/2024 11:00 AM CDT Office Visit [facility] [address] [facility] [address] [place] [address] Yuan White MD [address] [facility] [address] [place] [address] documented as of this encounter Visit Diagnoses Not on filedocumented in this encounter Care Teams Numerologist Relationship Specialty Start Date End Date Crispin Marcial MD [address] [place] [phone] PCP - General 01/24/17 documented as of this encounter
--- OUTSIDE RECORDS SUMMARY | 2024-08-01 15:37 | XMS_ITS | Encounter Summary ---
Author Organization [facility] Address [address] [place] [address] Phone Care Team Providers Care Analytical Data Miner Name Role Phone Crispin Marcial MD Primary Care Provider [phone] Reason for Visit * Reason Comments Med Refill Encounter Details Date Type Department Care Team (Late Contact Info) Description 07/23/2017 Refill [facility] [place] [address] [place] [address] Eric Turner MD [address] [place] [address] Social History Tobacco Use Types [...] Description 12/11/2024 11:00 AM CDT Office Visit [facility] [address] [facility] [address] [place] [address] Yuan White MD [address] [facility] [address] [place] [address] documented as of this encounter Visit Diagnoses Not on filedocumented in this encounter Care Teams Analytical Data Miner Relationship Specialty Start Date End Date Crispin Marcial MD [facility] [place] [address] PCP - General 01/24/17 documented as of this encounter
--- OUTSIDE RECORDS SUMMARY | 2024-08-01 15:37 | XMS_ITS | Referral Summary ---
Author Organization [facility] Medical Office Building A Address [address] [place] [address] Care Team Providers Care Strategic Account Director Name Role Phone Crispin Marcial MD Primary Care Provider [phone] Encounters Date Type Department Care Team Description 07/25/2024 8:35 AM CDT Lab [facility] [address] [place] [id number] 05/29/2024 7:55 AM SCORER HELPER Lab [facility] [address] [place] [address] from Last 3 Months Allergies Active Allergy Reactions Criticality Noted Date Comments [place] Additives Hives Medium 06/19/2009 No citrus foods [place] And Derivatives Hives Medium 06/19/2009 No citrus [...] dose at 9 AM Active mycophenolate sodium (MYFORTIC) 180 mg EC tablet Take 3 [...] g total) by mouth daily Active vit C,M-Da-lumoa-lute in-zeaxan 250-90-40-1 mg capsule Take 1 capsule [...] as needed for muscle spasms 20 tablet 4 Active Active Problems Problem Noted Date Diagnosed [...] History of renal transplant 02/09/2017 Hyperlipidemia 02/09/2017 Immunizations Immunization Administration Dates Next Due Influenza, Unspecified 01/01/2023 Social History Tobacco Use Types Packs/Day Years Used Date Smoking Tobacco: Never Passive Smoke Exposure: Past Smokeless Tobacco: Never Tobacco Cessation:Counseling Given: Not Answered [facility] Utilities Answer Date Recorded In the past 12 months has e [employer], gas, oil, or water [employer] threatened to shut off services in your [...] than three times a week 09/12/2023 Attends Taoist Services Not on file 09/11 Active Member [...] any time in the past [address] [facility], were you homeless or living in a penitentiary (including now)? No 09/12/2023 Personal Safety Answer [...] PM CDT Sexual Orientation Not on file Last Filed Vital Signs Vital Sign Reading Time Taken Comments Blood Pressure 119/74 05/02/2024 11:27 AM SCORER HELPER Pulse 66 05/02/2024 11:27 AM SCORER HELPER Temperature 36.9 C (98.5 F) 01/31/2024 10:09 AM CDT Respiratory Rate 16 05/02/2024 11:27 AM SCORER HELPER Oxygen Saturation 96% 05/02/2024 11:27 AM SCORER HELPER Inhaled Oxygen Concentration - - Weight 70.8 kg (156 lb) 05/02/2024 11:27 AM SCORER HELPER Height 160 cm (5' 2.99 ) 05/02/2024 11:27 AM SCORER HELPER Body Mass Index 27.64 05/02/2024 11:27 AM SCORER HELPER Plan of Treatment Not on file Procedures Procedure Name Priority Date/Time Associated Diagnosis Comments EGFR Routine 07/25/2024 8:42 AM CDT TACROLIMUS LEVEL, RANDOM Routine 07/25/2024 8:42 AM CDT CBC WITHOUT DIFFERENTIAL Routine 07/25/2024 8:42 AM CDT RENAL FUNCTION PANEL Routine 07/25/2024 8:42 AM CDT EGFR Routine 05/29/2024 8:22 AM SCORER HELPER DIFFERENTIAL AUTO Routine 05/29/2024 8:2 2 AM SCORER HELPER TACROLIMUS LEVEL, RANDOM Routine 05/29/2024 8:22 AM SCORER HELPER PTH Routine 05/29/2024 8:22 AM SCORER HELPER RENAL FUNCTION PANEL Routine 05/29/2024 8:22 AM SCORER HELPER CBC WITH AUTO DIFFERENTIAL Routine 05/29/2024 8:22 AM SCORER HELPER SCREENING MAMMOGRAM BILATERAL W SHAHZAD Schedule Routine, Read Routine (OP Routine) 01/18/2024 3:27 PM CDT Screening mammogram, encounter for HEMOGLOBIN A1C Routine 11/29/2023 8:11 AM CDT LIPID PANEL Routine 10/13/2023 8:22 AM CDT ALBUMIN CREATININE RATIO, URINE Routine 10/13/2023 8:22 AM CDT COLONOSCOPY 02/21/2023 9:08 AM SCORER HELPER from Last 3 Months or Most Recently [...] was last reviewed 2021. Testing performed by: [facility], [address] [place] [address], [place]., [address] Blood 07/25/2024 8:42 AM CDT 07/25/2024 7:03 PM CDT us Yuan White MD LAB BLOOD ORDERABLES Final Re sult [facility] 1 [facility] Department [place] [address] * Tacrolimus level random (07/25/2024 8:42 AM CDT) Tacrolimus random 19.2 ng/mL Comment: Interpretive Data Testing performed by liquid chromatography-tandem mass spectrometry. Therapeutic concentrations vary depending on type of transplanted organ and time elapsed since transplant. Typical trough concentrations range from 5-15 ng/mL. This test was developed and its performance characteristics determined by the [facility] consistent with CLIA requirements. This test has not been cleared or approved by the [place] Food and Drug administration. Current interpretive data last reviewed 2019. Testing performed by: [facility], [address] [place]., [address] Blood 07/25/2024 8:42 AM CDT 07/25/2024 7:58 PM CDT Yuan White MD LAB BLOOD ORDERABLES Final Re sult A[facility] (GARY) 1 [facility] Department [place] [address] * (ABNORMAL) CBC without differential (07/25/2024 8:42 AM CDT) [facility] WBC 5.93 3.80 - 9.90 K/cumm Comment:Testing performed by : [address], [address] Hgb 11.7(L) 11.9 - 15.5 g/dL [facility] ([place]EE[place]) Comment:Testing performed by : [address], [address] Hct 38.7 35.6 - 45.5 % [facility] ([place]) Comment:Testing performed by : [address], [address] Plt 243 150 - 400 K/cumm [facility] ([place]) Comment:Testing performed by : [address], [address] MPV 9.9 9.1 - 12.3 fL [facility] ([place]) Comment:Testing performed by : [address], [address] RBC 4.30 3.90 - 5.20 M/cumm [facility] ([place]) Comment:Testing performed by : [facility], [address] [place] [address], [address] MCV 90.0 81.3 - 96.4 fL [facility] ([place]) Comment:Testing performed by : [facility], [address] [place] [address], [address] MCH 27.2 27.1 - 33.3 pg [facility] ([place]) Comment:Testing performed by : [address], [address] MCHC 30.2(L) 32.3 - 35.7 g/dL [facility] ([place]) Comment:Testing performed by : [address], [address] RDW CV 14.0 11.1 - 14.9 % [facility] ([place]) Comment:Testing performed by : [address], [address] RDW SD 46.2 35.7 - 48.1 fL [facility] ([place]) Comment:Testing performed by : [address], [address] NRBC abs 0.00 0.00 - 0.01 K/cumm [facility] ([place]) Comment:Testing performed by : [address], [address] Blood 07/25/2024 8:42 AM CDT 07/25/2024 8:43 AM CDT Yuan White MD LAB BLOOD ORDERABLES Final Re sult [facility] ([place]) 1 [facility] Department [place] [address] * (ABNORMAL) Renal function panel (07/25/2024 8:42 AM CDT) Sodium 136 135 - 145 mmol/L Comment:Testing performed by : [address], [address] Potassium, pl 5.0(H) 3.3 - 4.9 mmol/L [facility] (KEEGAN) Comment:Testing performed by : [facility], [address] [place] [address]., [address] Chloride 104 97 - 110 mmol/L [facility] ([place]) Comment:Testing performed by : [facility], [address] [place] [address]., [address] CO2 23 22 - 32 mmol/L [facility] ([place]) Comment:Testing performed by : [facility], [address] [place] [address]., [address] Anion gap 9 2 - 15 mmol/L [facility] ([place]) Comment:Testing performed by : [facility], [address] [place] [address], [address] BUN 15 6 - 25 mg/dL [facility] ([place]) Comment:Testing performed by : [facility], [address] [place] [address], [address] Creatinine 0.78 0.60 - 1.10 mg/dL [facility] ([place]) Comment:Testing performed by : [address], [address] Glucose 134 70 - 199 mg/dL CERNER [...] classification and Diagnosis of Diabetes Diabetes Care 2021; 46: S19-S40. Current interpretive data was last revised 2022. Testing performed by: [facility], [address] [place] [address]., [address] Calcium 8.9 8.5 - 10.3 mg/dL [facility] ([place]) Comment:Testing performed by : [address] [address] Phosphorus, pl 2.8 2.3 - 4.5 mg/dL [facility] ([place]) Comment:Testing performed by : [address], [address] Albumin 3.4(L) 3.5 - 5.0 g/dL [facility] ([place]) Comment:Testing performed by : [facility], [address] [place] [address], [place]., [address] Blood 07/25/2024 8:42 AM CDT 07/25/2024 8:42 AM CDT Yuan White MD LAB BLOOD ORDERABLES Final Re sult [facility] (GARY) 1 [facility] [place] [address] * eGFR (05/29/2024 8:22 AM SCORER HELPER) eGFR >90 >=60 mL/min/1. 73 m2 Comment: [...] last reviewed 2021. Blood 05/29/2024 8:22 AM SCORER HELPER 05/29/2024 8:31 AM SCORER HELPER Yuan White MD LAB BLOOD ORDERABLES Final Re sult [facility] (GARY) 1 [facility] Department [place] [address] * Differential, auto (05/29/2024 8:22 AM SCORER HELPER) Neutrophil abs 2.5 1.5 - 6.5 K/cumm [...] revised on 2017. Blood 05/29/2024 8:22 AM SCORER HELPER 05/29/2024 8:31 AM SCORER HELPER Yuan White MD LAB BLOOD ORDERABLES Final Re sult [facility] ([place]) 1 [facility] [place] [address] * (ABNORMAL) CBC with auto differential (05/29/2024 8:22 AM SCORER HELPER) Pathologist [facility] WBC 5.1 3.8 - 9.9 K/cumm Hgb [...] [facility] ([place]) Blood 05/29/2024 8:22 AM SCORER HELPER 05/29/2024 8:31 AM SCORER HELPER Yuan White MD LAB BLOOD ORDERABLES Final Re sult [facility] ([place]) 1 [facility] Department [place] [address] * Tacrolimus level random (05/29/2024 8:22 AM SCORER HELPER) Pathologist [facility] Tacrolimus random 9.3 ng/mL Comment: Interpretive Data Testing performed by liquid chromatography-tandem mass spectrometry. Therapeutic concentrations vary depending on type of transplanted organ and time elapsed since transplant. Typical trough concentrations range from 5-15 ng/mL. This test was developed and its performance characteristics determined by the [facility] consistent with CLIA requirements. This test has not been cleared or approved by the US Food and Drug administration. Current interpretive data last reviewed 2019. Testing performed by: [facility], [address] [place]., [address] Blood 05/29/2024 8:22 AM SCORER HELPER 05/29/2024 11:54 AM SCORER HELPER us Yuan White MD LAB BLOOD ORDERABLES Final Re sult Performing Organization Address City/[facility]/ZIP Co de Phone Number [facility] (KEEGAN) 1 [facility] [place] [address] * PTH (05/29/2024 8:22 AM SCORER HELPER) PTH 38 15 - 65 pg/mL Blood 05/29/2024 8:22 AM SCORER HELPER 05/29/2024 8:31 AM SCORER HELPER Yuan White MD LAB BLOOD ORDERABLES Final Re sult Performing Organization Address [facility] Co de Phone Number [facility]AN[facility] (KEEGAN) [address] [place] [address] * Renal function panel (05/29/2024 8:22 AM SCORER HELPER) Sodium 136 135 - 145 mmol/L Potassium, pl 4.3 3.3 - 4.9 mmol/L [facility] ([place]) Chloride 103 97 - 110 mmol/L [facility] ([place]) CO2 24 22 - 32 mmol/L [facility] ([place]) Anion gap 9 2 - 15 mmol/L [facility] ([place]) BUN 15 6 - 25 [...] 2022. Calcium 9.1 8.5 - 10.3 mg/dL [facility] (KEEGAN) Phosphorus, pl 3.5 2.3 - 4.5 mg/dL [facility] ([place]) Albumin 3.9 3.5 - 5.0 g/dL [facility] ([place]) Blood 05/29/2024 8:22 AM SCORER HELPER 05/29/2024 8:31 AM SCORER HELPER us Yuan White MD LAB BLOOD ORDERABLES Final Re sult [facility] (GARY) 1 [facility] Department [place] [address] * Screening Mammogram Bilateral W Shahzad (01/18/2024 [...] MAMMOGRAM COMPARISON: Prior mammogram from 12/21/2022 - [place], [place] TECHNIQUE: Full-field 2D and digital breast [...] - 5.6 % Comment:Testing performed by : [address] [address] Estimated Average Glucose 217 mg/dL [facility] (KEEGAN) Comment: The ADA recommends reporting an estimated Average Glucose (eAG) with all Hemoglobin A1c results using the equation derived from a study of 507 normal and diabetic adults. Minority populations were underrepresented and children were not included. (Diabetes Care 31:1467-8999, 2008). The eAG is not equivalent to a fasting glucose. Testing performed by: [address] [address] Blood 11/29/2023 8:11 AM CDT 11/29/2023 8:12 AM CDT Yuan White MD LAB BLOOD ORDERABLES Final Re sult [facility] ([place]EEGAN) 1 [facility] Department [place] [address] * Albumin Creatinine Ratio, Urine (10/13/2023 8:22 AM CDT) Pathologist [facility] Albumin Ur 15.6 mg/L Comment: Interpretive Data No reference range established. Current interpretive data was last revised 2018. Testing performed by: [address] [address] Creatinine Ur 83.5 mg/dL [facility] (KEEGAN) Comment: Interpretive Data No reference range established. Current interpretive data was last revised 2018. Testing performed by: [address] [address] Albumin Creatinine Ratio, Ur 19 1 - 29 mg/g [facility] (KEEGAN) Comment:Testing performed by : [address] [address] Urine 10/13/2023 8:22 AM CDT 10/13/2023 12:52 PM CDT us Crispin Marcial MD LAB URINE ORDERABLES Final R esult [facility] ([place]) 1 [facility] Department [place] [address] * (ABNORMAL) Lipid panel (10/13/2023 8:22 AM [...] last revised on 2017. Testing performed by: [facility], [address] [place] [address]., [address] Triglycerides 198(H) <=149 mg/dL [facility] (KEEGAN) [...] last revised on 2017. Testing performed by: [facility], [address] [place] [address]., [address] HDL 58 >=40 mg/dL [facility] ([place]) Comment: Interpretive Data [...] last revised on 2017. Testing performed by: [facility], [address] [place] [address]., [address] LDL, calculated 62 <=129 mg/dL [facility] (KEEGAN) Comment: Interpretive Data [...] last revised on 2017. Testing performed by: [facility], [address] [place] [address]., [address] Non-HDL Cholesterol 102 mg/dL [facility] (KEEGAN) Comment: Interpretive Data [...] last revised on 2017. Testing performed by: [facility], [address] [place] [address]., [address] Chol/HDL ratio 3 MELISSA RO[facility] (KEEGAN) Comment:Testing performed by : [facility], [address] [place] [address], [place]., [address] Blood 10/13/2023 8:22 AM CDT 10/13/2023 12:52 PM CDT us Crispin Marcial MD LAB BLOOD ORDERABLES Final R esult [facility] (GARY) 1 [facility] Department [place] [address] * COLONOSCOPY (02/21/2023 9:08 AM SCORER HELPER) Anatomical Region Laterality Modality Other Narrative Procedure Note Tracy Lees MD - 02/21/2023 9:08 AM CST [facility] Patient Name: Taylor Rodrigues Procedure Date: 02/21/2023 9:08 AM Date of : 1950 Admit Type: Outpatient Age: 73 Gender: Female Note Status: Finalized Attending MD: Tracy Lees M.D. Procedure Date: 02/21/2023 Procedure: Colonoscopy Indications: High risk colon cancer surveillance: Personalhistory of colonic polyps Providers: Tracy Lees M.D., Vianney Garcia CRNA (Anesthesia Staff), Sahara Duong RN, Marsha, Joy Loader Referring MD: Crispin Marcial Medicines: Monitored Anesthesia [...] bowel preparation was evaluated using the BBPS (Salyer Bowel Preparation Scale)with scores of: Right Colon [...] for surveillance. Procedure Code(s): --- Professional --- 16176, Colonoscopy, flexible; with biopsy, singleor multiple Diagnosis Code(s): --- Professional --- Z86.010, Personal history of colonic polyps K64.8, Other hemorrhoids D12.5, Benign neoplasm of sigmoid colon D12.4, Benign neoplasm of descending colon D12.3, Benign neoplasm of transverse colon (hepatic flexure or splenic flexure) K57.30, Diverticulosis of large intestine without perforation or abscess without bleeding CPT copyright 2020 [employer] [place] [employer]. All rights reserved. The codes documented in this report are preliminary and upon information technology security manager reviewmay be revised to meet current compliance requirements. Dr. Tracy Lees MD [facility] Tracy Lees M.D. 02/21/2023 10:50:19 AM Number of Addenda: 0 Note Initiated On: 02/21/2023 9:08 AM Tracy Lees MD ENDOSCOPY PROCEDURES Final Result from Last 3 Months or Most Recently Relevant to Health Maintenance Insurance T MEDICARE T MEDICARE T MEDICARE Advance Directives For more information, please contact: [phone] * Full Code (Latest Code Status on File) Date Activated Date Inactivated Comments 09/11/2023 11:40 AM 09/14/2023 9:31 PM * Full Code Date Activated Date Inactivated Comments 04/30/2023 6:45 PM 05/05/2023 4:43 PM Care Teams Strategic Account Director Relationship Specialty Start Date End Date Crispin Marcial MD [address] [place], [place] [address] PCP - General Internal Medicine 05/02/24
--- OUTSIDE RECORDS SUMMARY | 2024-08-01 15:37 | XMS_ITS | Clinical Summary ---
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 Active B Caivvnn-C-Ouelq Acid (NEPHRO-ALEXANDRE RX PO) take 1 Tab by mouth daily. Active alendronate (FOSAMAX) 70 MG Tablet 0 01/17/2016 Active mycophenolate (MYFORTIC) 180 MG Tablet Delayed Response 0 01/17/2016 Ac tive tacrolimus (PROGRAF) 1 MG Capsule 2 02/19/2016 Active omeprazole (PRILOSEC) 20 MG CAPSULE DELAYED RELEASE Take 20 mg by mouth daily. Active Multiple Vitamins-Mineral s (CENTRUM SILVER PO) Take by mouth. Active Whitt-3 Fatty Acids (OMEGA 3 PO) Take by mouth. Active predniSONE (DELTASONE) 5 MG Tablet Take 5 mg by mouth daily. Use as directed. Active azithromycin (ZITHROMAX) 250 MG Tablet 2 tab(s) daily for 1 day, then 1 tab(s) daily for days 2-5. 6 Tab 0 04/11/2016 Active Active Problems Problem Noted Date Diagnosed Date Hypertension Hyperlipidemia DM (diabetes mellitus) Esophageal reflux Family History Medical History Relation Name Comments Breast Cancer Neg Hx Social History Tobacco Use Types Packs/Day Years Used Date Smoking Tobacco: Never Alcohol Use Standard Drinks/Week Comments Not Asked 0 (1 standard drink = 0.6 oz pur e alcohol) Comments No Sex and Gender Information Value Date Recorded Sex Assigned at Not on file Legal Sex Female 2:57 AM SEED PELLETER Gender Identity Not on file Sexual Orientation Not on file Last Filed Vital Signs Vital Sign Reading Time Taken Comments Blood Pressure 140/76 04/11/2016 2:29 PM SEED PELLETER Pulse 100 04/11/2016 2:29 PM SEED PELLETER Temperature 36.8 C (98.2 F) 04/11/2016 2:29 PM SEED PELLETER Respiratory Rate 16 04/11/2016 2:29 PM SEED PELLETER Oxygen Saturation 95% 04/11/2016 2:29 PM SEED PELLETER Inhaled Oxygen Concentration - - Weight 87.1 kg (192 lb) 04/11/2016 2:29 PM SEED PELLETER Height 165.1 cm (5' 5 ) 04/11/2016 2:29 PM SEED PELLETER Body Mass Index 31.95 04/11/2016 2:29 PM SEED PELLETER Plan of Treatment Health Maintenance Due Date Last Done Comments Diabetes: Eye Exam 1950 Diabetes: Foot Exam 1950 Colonoscopy 01/03/1996 Colorectal Cancer Screening 01/03/1996 Cologuard 2001 Immunochemical Fecal Occult Blood 2001 Respiratory Syncytial Virus (RSV) Immunization (Adult) (1 - Risk 60-74 years 1-dose series) 2011 DEXA Bone Density 06/21/2015 06/20/2013 Zoster Immunization (2 of 2) 05/12/2020 03/17/2020, 11/14/2019 Diabetes: Hemoglobin A1c 07/06/2021 021, 07/07/2020, 02/04/2020, Additional history exists Diabetes: Nephropathy Screening 01/05/2022 01/05/2021, 10/14/2019, 04/08/2019, Additional history exists Mammogram 12/07/2022 12/07/2021, 10/02, 10/14/2019, Additional history exists SARS-COV-2 Immunization ( season) 2023 09/11/2021, 12/08/2020, 07/09/2020, Additional history exists Influenza Immunization (Season Ended) 2024 02/03/2021, 11/28/2019, 01/05/2019 Hepatitis C Virus (HCV) Screening Completed 04/06/2010, 03/09/2010, 01/04/2010, Additional history exists Pneumococcal Immunization (50+ years) Completed 04/12/2017, 02/13/2016 Pneumococcal Immunization Combined Discontinued 04/12/2017, 02/13/2016 DTaP/Tdap/Td Immunization Discontinued 11/26/2018 TdaP Immunization Completed 11/26/2018 Hepatitis B Immunization Aged Out No longer eligible based on patient's age to complete this topic Meningococcal Immunization (ACWY) Aged Out No longer eligible based on patient's age to complete this topic Rotavirus Immunization Aged Out No lo nger eligible based on patient's age to complete this topic Procedures Procedure Name Priority Date/Time Associated Diagnosis Comments [facility] SCREENING BILATERAL DIGITAL W CAD W HOPE Routine 12/07/2021 8:32 AM CDT Encounter for screening mammogram for malignant neoplasm of breast UR MICROALBUMIN/CREATI NINE RATIO RANDOM Routine 01/05/2021 9:02 AM CDT Kidney transplant status Other nursing home (current) drug therapy Magnesium malabsorption Type 2 diabetes mellitus without complication, unspecified whether 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 (HCC) Secondary hyperparathyroidism of renal origin (HCC) Anemia, unspecified type HEMOGLOBIN A1C W/ ESTIMATED GLUCOSE Routine 01/05/2021 8:45 AM CDT Kidney transplant status 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 gauger supervisor (current) 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 therapy Magnesium malabsorption Type 2 diabetes mellitus without complication, unspecified whether 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 (HCC) Secondary hyperparathyroidism of renal origin (HCC) Anemia, unspecified type [facility] BONE DENSITOMETRY AXIAL SKELETON Routine 06/20/2013 8:51 AM CDT Osteoporosis, unspecified HEPATITIS C ANTIBODY Routine 04/06/2010 8:49 AM SEED PELLETER Kidney replaced by transplant Encounter for long-term (current) use of other medications Follow-up examination, following other surgery Other specified examination Other specified disorders resulting from impaired renal function from Last 3 Months or Most Recently Relevant to Health Maintenance Results * [facility] SCREENING BILATERAL DIGITAL W CAD W HOPE (12/07/2021 8:32 AM CDT) Anatomical Region Laterality Modality breast Bilateral Mammography 12/07/2021 8:32 AM CDT Impressions 12/07/2021 9:48 AM CDT IMPRESSION: 1. There is no mammographic evidence of malignancy. RECOMMENDATIONS: A 1 year screening mammogram is recommended. Mammogram BI-RADS: 1 - Negative. Narrative 12/07/2021 9:48 AM CDT Dictating Physician: Paula Lackey M.D. Exam: [facility] SCREENING BILATERAL DIGITAL W CAD W HOPE 12/07/2021 8:32 AM Comparison: 10/20/2020, 10/14/2019, 09/19/2018, 08/16/2017. History: Routine screen. No complaints. Findings: Current study was also evaluated with a Computer Aided Detection (CAD) system. Additional 3-D tomographic mammography was also obtained. There are scattered areas of fibroglandular density. No suspicious masses, calcifications, or other significant findings are seen. There has been no significant interval change. . us Crispin Marcial MD IMG MAMMO ORDERABLES Final Re sult * UR MICROALBUMIN/CREATININE RATIO RANDOM (01/05/2021 9:02 AM CDT) RAN UR MICROALBUMIN 1.30 mg/dL 01/05/2021 5:43 PM CDT [facility] CREATININE URINE 124.2 mg/dL 01/06/20 5:43 PM CDT [facility] Comment:No reference range h as been established. Consider Clinical Correlation. ALB/CREAT RATIO 10 0 - 30 mg/g CRE 01/05/2021 5:43 PM CDT [facility] Urine Non-Phlebotomy Collection / Unknown 01/05/2021 9:02 AM CDT 01/05/2021 9:13 AM CDT Eric Turner MD URINE ORDERABLES Final Res ult Performing Organization Address [facility]/ZIP Co de Phone Number [facility] [address] [place] [address], [place] * (ABNORMAL) HEMOGLOBIN A1C W/ ESTIMATED GLUCOSE (01/05/2021 8:45 AM CDT) HGB-A1C 6.5(H) 4.0 - 6.0 % 01/05/2021 5:26 PM CDT [facility] Est Average Glucose 139.9 mg/dL 01/05/2021 5:26 PM CDT [facility] Blood Venipuncture / Unknown 01/05/2021 8:45 AM CDT 01/05/2021 8:50 AM CDT Narrative [facility] - 01/05/2021 5:26 PM CDT Specimens containing greater than 5% of Hemoglobin F may result in lower than expected % HbA1C results. Eric Turner MD CHEMISTRY ORDERABLES Final Result Performing Organization Address [facility] Co de Phone Number [facility] [address] [place] [address], [place] * [facility] BONE DENSITOMETRY AXIAL SKELETON (06/20/2013 8:51 AM CDT) Anatomical Region Laterality Modality BODY N/A Other 06/20/2013 8:51 AM CDT Impressions 06/20/2013 9:14 AM CDT IMPRESSION: 1) Osteoporosis. 2) The data predict a 7.0 % increase risk of fracture. . Follow-up exam in 2 years can be used to assess response to therapy. Narrative 06/20/2013 9:14 AM CDT EXAM: Bone Densitometry 06/20/2013 8:51 AM. CLINICAL HISTORY: Post menopausal female. TECHNIQUE: Bone mineral density was assessment using dual energy X-ray absorptiometry (DEXA). COMPARISON: None. FINDINGS: Lumbar Spine The average bone mineral density of the lumbar spine (L1 - L4) was measured to be 0.880 gms/cm2. The T-score is -1.5, indicating osteopenia. Left Hip The average bone mineral density of the total left hip was measured to be 0.736 gms/cm2. The T-score is -1.7, indicating osteopenia. The average bone mineral density of the left femoral neck was measured to be 0.680 gms/cm2. The T-score is -1.5, indicating osteopenia. Left Forearm The average bone mineral density of the middle third left radius and ulna was measured to be 0.5-2 gms/cm2. The T-score is -2.8, Indicating osteoporosis. Procedure Note Clark Wall MD - 06/20/2013 EXAM: Bone Densitometry 06/20/2013 8:51 AM. CLINICAL HISTORY: Post menopausal female. TECHNIQUE: Bone mineral density was assessment using dual energy X- rayabsorptiometry (DEXA). COMPARISON: None. FINDINGS: Lumbar Spine The average bone mineral density of the lumbar spine (L1 - L4) wasmeasured to be 0.880 gms/cm2. The T-score is -1.5, indicatingosteopenia. Left Hip The average bone mineral density of the total left hip was measured to be0.736 gms/cm2. The T-score is -1.7, indicating osteopenia. The average bone mineral density of the left femoral neck was measured nina 0.680 gms/cm2. The T-score is -1.5, indicating osteopenia. Left Forearm The average bone mineral density of the middle third left radius and ulnawas measured to be 0.5-2 gms/cm2. The T-score is -2.8, Indicatingosteoporosis. IMPRESSION: 1) Osteoporosis. 2) The data predict a 7.0 % increase risk of fracture. . Follow-up exam in 2 years can be used to assess response to therapy. Ángel Eid MD IMG DEXA ORDERABLES Final Result * HEPATITIS C ANTIBODY (04/06/2010 8:49 AM SEED PELLETER) hepatitis C antibody NON DETECTED NON DETECTED [facility] Comment: ANTIBODIES TO HCV NOT DETECTED: DOES NOT EXCLUDE EARLY ACUTE HCV INFECTION. Performed at [facility], [place] [address]. Blood specimen (specimen) 04/06/2010 8:49 AM SEED PELLETER 04/06/2010 11:09 AM SEED PELLETER us Kiki Ulloa MD CHEMISTRY ORDERABLES Final R esult [facility] [address] 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
[2024-08-01 15:38] LABS: Add Urine Microscopic? NO; Appearance Urine Clear (Clear); Bilirubin Urine Negative (Negative); Blood Urine Negative (Negative); Color Urine Yellow (Yellow); Glucose Urine UA Negative (Negative); Ketones Urine Trace (Negative); Leukocyte Esterase Ur Negative (Negative); Nitrate Urine Negative (Negative); Protein Urine Negative (Negative); Specific Grav Ur 1.015 (1.010-1.020); Urobilinogen Urine 0.2 mg/dL (0.2-1.0)
[2024-08-02 02:21] LABS: Hemoglobin A1C 10.5 % (<5.7)
== END 2024-08-01 14:55 | disposition home or self-care (01) ==
LOC: CHSLAB 15:14
DX: E11.9 Type 2 diabetes mellitus without complications (principal); Z79.4 Long term (current) use of insulin
CPT/HCPCS: 36415; 81003; 83036